=== PATIENT | female | born 1925 | race Caucasian/White ===

== ENCOUNTER 2016-05-27 09:01 | Outpatient (CLI) | payer OTHER ==
[2012-10-09 12:01] VITALS: BP 142/65; TEMP 97.3
[2016-03-30 11:07] VITALS: BMI 25.7
== END 2016-05-27 09:02 | disposition home or self-care (01) ==
LOC: NONPT 09:01
PROVIDERS: ATTEND General Practice
DX: R19.7 Diarrhea, unspecified (principal)

== ENCOUNTER 2016-06-01 10:28 | Outpatient (CLI) | payer OTHER ==
[2012-10-09 12:01] VITALS: BP 142/65; TEMP 97.3
[2016-03-30 11:07] VITALS: BMI 25.7
== END 2016-06-01 10:29 | disposition home or self-care (01) ==
LOC: NONPT 10:28
PROVIDERS: ATTEND General Practice
DX: A04.7 Enterocolitis due to Clostridium difficile (principal)
CPT/HCPCS: 87015; 87045; 87493; 87899

== ENCOUNTER 2016-06-08 16:36 | Outpatient (CLI) ==
[2012-10-09 12:01] VITALS: TEMP 97.3
== END 2016-06-08 16:37 ==
LOC: AMBL 16:36
PROVIDERS: ATTEND Internal Medicine
DX: S61.012A Laceration without foreign body of left thumb without damage to nail, initial encounter (principal); M25.512 Pain in left shoulder; R29.6 Repeated falls; F03.90 Unspecified dementia, unspecified severity, without behavioral disturbance, psychotic disturbance, mood disturbance, and anxiety; W19.XXXA Unspecified fall, initial encounter; Y92.129 Unspecified place in nursing home as the place of occurrence of the external cause

== ENCOUNTER 2016-06-12 08:02 | Outpatient (CLI) ==
[2012-10-09 12:01] VITALS: TEMP 97.3
[2016-06-12 13:42] VITALS: BMI 21.2
== END 2016-06-12 08:03 | disposition home or self-care (01) ==
LOC: AMBL 08:02
PROVIDERS: ATTEND Emergency Medicine
DX: R09.02 Hypoxemia (principal); R09.89 Other specified symptoms and signs involving the circulatory and respiratory systems; S69.92XA Unspecified injury of left wrist, hand and finger(s), initial encounter; J44.9 Chronic obstructive pulmonary disease, unspecified

== ENCOUNTER 2016-06-12 08:11 | Inpatient (IN) | payer OTHER ==
[2016-06-12 08:57] LABS: BASOPHILS % (AUTO) 0.1 % (0.0-3.0); HEMATOCRIT 30.8 % (37.0-47.0); HEMOGLOBIN 10.5 g/dl (12.0-16.0); LYMPHOCYTES # (AUTO) 0.8 K/uL (0.60-3.4); LYMPHOCYTES % (AUTO) 2.6 (10.0-50.0); MEAN CORPUSCULAR HEMOGLOBIN 27.3 pg (27.0-31.0); MEAN CORPUSCULAR HGB CONC 34.1 (31.8-35.4); MONOCYTES % (AUTO) 6.6 (0-10); NEUTROPHILS % (AUTO) 89.7; PLATELET COUNT 251 10^3/uL (140-440); RED BLOOD COUNT 3.85 10^6/ul (4.20-5.40); WHITE BLOOD COUNT 30.04 K/ul (4.6-10.2)
--- NOTE | 2016-06-12 09:10 | DI ---
EXAM: Left hand to the is HISTORY: Recent surgery, concern for osteomyelitis COMPARISON: 11/24/2014 TECHNIQUE: Two views left hand were performed FINDINGS/IMPRESSION: Evaluation is limited due to patient positioning. There is a displaced age ind eterminate fracture of the proximal phalanx first digit. Suggestion of callus formation in this bob on may suggest subacute etiology, poorly visualized. A splint overlies this region. Clinical correl ation is recommended. No cortical destruction identified to suggest osteomyelitis by radiograph. M RI can be performed if there is continued clinical concern for osteomyelitis. Suggestion of soft tis concepcion swelling of several digits. Moderate scattered osteoarthritis. Atherosclerosis. Report faxed at time of dictation.
--- NOTE | 2016-06-12 09:12 | DI ---
EXAM: Chest one view HISTORY: Short of air COMPARISON: 03/30/2016 TECHNIQUE: Single view of the chest was performed FINDINGS: Patchy basilar atelectasis and/or infiltrate There is no pleural effusion or pneumothora x. The heart is normal in size. The mediastinal contour is normal, noting atherosclerosis. There are no acute abnormalities of the bones. There are surgical clips left axillary region. IMPRESSION: Patchy bibasilar atelectasis and/or pneumonia Report faxed at time of dictation
[2016-06-12] MEDS ORDERED: AVELOX 400 MG in PREMIX 250 ML NS 1 BAG IV STA (09:23)
[2016-06-12] MEDS ORDERED: SODIUM CHLORIDE 200 ML IV STA (09:24)
--- NOTE | 2016-06-12 09:29 | ED.PDOC ---
General ED Provider: Dr. EBER MITTAL JR Chief Complaint: Respiratory Complaint Stated Complaint: SHORT OF AIR[End]this morning per skf 97.8 118 24 88 119/82 HAS BANDAGE TO LEFT ARM FROM RECENT OPEN FX TO THUMB[End] Time Seen by Physician: 09:00 Mode of Arrival: Ambulance Information Source: Patient, Retirement, EMT Exam Limitations: Clinical condition, Altered mental status [facility] Documentation Reviewed and Agree: No Review of Systems - Review Of Systems Constitutional: Reports: Malaise Respiratory: Reports: Short of air Cardiac: Reports: Other GI: Reports: Other Musculoskeletal: Reports: Joint pain Skin: Reports: No symptoms Neurological: Reports: Cognitive dysfunction Endocrine: Reports: No symptoms All Other Systems: Other Past Medical History - Past Medical History Endocrine: Reports: Hypothyroid Cardiovascular: Reports: Hypertension, Other ((aortic mitral valve on [facility] NOTES )-NORMAL ON echo 07/10/12) Respiratory: Reports: COPD Hematological: Reports: None Gastrointestinal: Reports: GERD Genitourinary: Reports: Kidney stones, CKD Neuro/Psych: Reports: TIA, CVA, Depression, Dementia Musculoskeletal: Reports: Arthritis 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 Last Menstrual Period: na Other Pertinent Past Medical History: falls, nonrheumatic aortic valve disorder , mitral valve disorder, - Surgical History General Surgical History: Reports: Appendectomy, Cholecystectomy, Orthopedic ( LEFT HIP-hip replacement), Other (LEFT SIDE MASECTOMY, CATARACT) - Family History Family History: Reports: Unknown - Social History Smoking Status: Former smoker Hx Substance Use: No Alcohol Screening: None Physical Exam - Physical Exam Appearance: Ill-appearing (unable to understand complaints states dooing all right but...unable to follow patient sentences) Ill-appearing: Moderate Pain Distress: Moderate Neck: Supple Respiratory: Airway patent, Rhonchi, Wheezes Cardiovascular: RRR, Tachycardia GI/: Soft, Nontender Musculoskeletal: Limited ROM, Limited strength Neurological: Alert, Alert to verbal Psychiatric: Depressed Interpretation - Radiology Interpretation Radiology Interpretation By: Radiologist Radiology Results: Positive Exam Interpreted: CXR (atel vs pneu), Other (hand no evidence osteo) - EKG Interpretation Time of EKG #1: 09:20 Rate: Tachy Rhythm: Sinus ST Segment: Other (LAFB nonspecificT wave changes deep s waves) Physician Notification - Case Discussed Physician Notified: [email or web address] Time of Notification: 11:43 (may admit if ok with family/no cardiac cath here) Time of Notification: 12:07 (disc witrh family prefer to keep here request consult dr mchugh, unwilling to have go to [facility] unless something specific to add) Critical Care Note - Critical Care Note Total Time (mins): 30 Course - Course Hematology/Chemistry: 06/12/16 08:45 06/12/16 08:45 Orders, Labs, Meds: Lab Review 06/12/16 06/12/16 06/12/16 08:21 08:45 09:20 WBC 30.04 H RBC 3.85 L Hgb 10.5 L Hct 30.8 L MCV 80.0 L MCH 27.3 MCHC 34.1 RDW Coeff of Yoseph 16.5 H Plt Count 251 Immature Gran % (Auto) 1.0 Neut % (Auto) 89.7 Lymph % (Auto) 2.6 L [place] % (Auto) 6.6 Eos % (Auto) 0.0 Baso % (Auto) 0.1 Immature Gran # (Auto) 0.3 Neut # 27.0 H Lymph # 0.8 [place] # 2.0 Eos # 0.0 Baso # 0.0 PT 11.5 H INR 1.12 APTT 24.1 D-Dimer 2.36 Puncture Site Rbrach O2 Saturation 75.0 L ABG pH 7.370 ABG pCO2 28.4 L ABG pO2 40.0 L* ABG HCO3 16.4 L ABG Total CO2 17 L ABG Base Excess -9 L Wilmer Test + FiO2 % 21.0 Sodium 144 Potassium 3.6 Chloride 113 H Carbon Dioxide 18 L Anion Gap 16.6 BUN 53 H Creatinine 2.34 H Estimated GFR (MDRD) 20.00 BUN/Creatinine Ratio 22.64 Glucose 110 Lactic Acid 10.6 Calcium 9.1 Total Bilirubin 0.45 AST 31 ALT 20 Alkaline Phosphatase 77 Total Creatine Kinase 667 CK-MB (CK-2) 8.8 H* CK-MB (CK-2) % 1.58751 Troponin I 1.1700 H* B-Natriuretic Peptide 1868 H Total Protein 7.0 Albumin 2.8 L Globulin 4.2 Albumin/Globulin Ratio 0.67 Procalcitonin 0.29 Cancelled Urine Color Urine Clarity Urine pH Ur Specific [place] Urine Protein Urine Glucose (UA) Urine Ketones Urine Blood Urine Nitrite Urine Bilirubin Urine Urobilinogen Ur Leukocyte Esterase Urine Microscopic WBC Ur Squamous Epith Cells 06/12/16 11:45 WBC RBC Hgb Hct MCV MCH MCHC RDW Coeff of Yoseph Plt Count Immature Gran % (Auto) Neut % (Auto) Lymph % (Auto) [place] % (Auto) Eos % (Auto) Baso % (Auto) Immature Gran # (Auto) Neut # Lymph # [place] # Eos # Baso # PT INR APTT D-Dimer Puncture Site O2 Saturation ABG pH ABG pCO2 ABG pO2 ABG HCO3 ABG Total CO2 ABG Base Excess [place] Test FiO2 % Sodium Potassium Chloride Carbon Dioxide Anion Gap BUN Creatinine Estimated GFR (MDRD) BUN/Creatinine Ratio Glucose Lactic Acid Calcium Total Bilirubin AST ALT Alkaline Phosphatase Total Creatine Kinase CK-MB (CK-2) CK-MB (CK-2) % Troponin I B-Natriuretic Peptide Total Protein Albumin Globulin Albumin/Globulin Ratio Procalcitonin Urine Color Yellow Urine Clarity Cloudy Urine pH 5.5 Ur Specific [place] 1.015 Urine Protein 2+ Urine Glucose (UA) Negative Urine Ketones Negative Urine Blood 2+ Urine Nitrite Positive Urine Bilirubin Negative Urine Urobilinogen 0.2 Ur Leukocyte Esterase 3+ Urine Microscopic WBC Ur Squamous Epith Cells Not present Orders Category Date Time Status ADMIT PATIENT INPATIENT .TO [facility] (MONITORED BED) ADMISSION 06/12/16 12: 10 Active ABG DRAW REQUEST Stat CARDIO 06/12/16 08:22 Completed EKG-(ED ONLY) Stat CARDIO 06/12/16 08:20 Completed EKG-(IP & OP ONLY) DAILY CARDIO 06/13/16 06:00 Ordered EKG-(IP & OP ONLY) DAILY CARDIO 06/14/16 06:00 Ordered EKG-(IP & OP ONLY) DAILY CARDIO 06/15/16 06:00 Ordered NEBULIZER TREATMENT Routine CARDIO 06/12/16 12:17 Active NEBULIZER TREATMENT Stat CARDIO 06/12/16 11:50 Completed OXYGEN Routine CARDIO 06/12/16 12:12 Active ACTIVITY .Complete BR CARE 06/12/16 12:10 Completed GIVE HS SNACK 2100 CARE 06/12/16 12:14 Active INTAKE & OUTPUT Q8HR CARE 06/12/16 12:10 Completed INTAKE & OUTPUT Q8HR CARE 06/12/16 12:25 Completed IV ACCESS ONCE CARE 06/12/16 09:20 Active TELEMETRY MONITORING TELE CARE 06/12/16 12:11 Active VITAL SIGNS Q4HR CARE 06/12/16 12:10 Active Wound Care [INCISION/WOUND CARE] Q12HR CARE 06/12/16 12:25 Active CLEAR LIQUID DIET DIETARY 06/12/16 Dinner Ordered HS SNACK DIETARY 06/12/16 Dinner Ordered ED APPLY O2 .ONCE EMERGENCY 06/12/16 08:20 Active ED PHYSICIAN IN PRIVATE PRACTICE APPLIED .ONCE EMERGENCY 06/12/16 09:20 Active ED IV/MEDIPORT/POWERPORT .ONCE EMERGENCY 06/12/16 08:20 Active ED VITAL SIGNS Q1HR EMERGENCY 06/12/16 09:20 Completed O2 [ED APPLY O2] .ONCE EMERGENCY 06/12/16 09:42 Active ABG Stat LAB 06/12/16 08:21 Completed B-TYPE NATRIURETIC PEPTIDE Stat LAB 06/12/16 08:45 Completed BLOOD CULTURE Stat LAB 06/12/16 08:45 Received CBC W/ AUTO DIFF DAILY@0600 LAB 06/13/16 06:00 Ordered CBC W/ AUTO DIFF DAILY@0600 LAB 06/14/16 06:00 Ordered CBC W/ AUTO DIFF DAILY@0600 LAB 06/15/16 06:00 Ordered CBC W/ AUTO DIFF DAILY@0600 LAB 06/16/16 06:00 Ordered CBC W/ AUTO DIFF DAILY@0600 LAB 06/17/16 06:00 Ordered CBC W/ AUTO DIFF DAILY@0600 LAB 06/18/16 06:00 Ordered CBC W/ AUTO DIFF DAILY@0600 LAB 06/19/16 06:00 Ordered CBC W/ AUTO DIFF DAILY@0600 LAB 06/20/16 06:00 Ordered CBC W/ AUTO DIFF DAILY@0600 LAB 06/21/16 06:00 Ordered CBC W/ AUTO DIFF DAILY@0600 LAB 06/22/16 06:00 Ordered CBC W/ AUTO DIFF DAILY@0600 LAB 06/23/16 06:00 Ordered CBC W/ AUTO DIFF DAILY@0600 LAB 06/24/16 06:00 Ordered CBC W/ AUTO DIFF DAILY@0600 LAB 06/25/16 06:00 Ordered CBC W/ AUTO DIFF DAILY@0600 LAB 06/26/16 06:00 Ordered CBC W/ AUTO DIFF DAILY@0600 LAB 06/27/16 06:00 Ordered CBC W/ AUTO DIFF DAILY@0600 LAB 06/28/16 06:00 Ordered CBC W/ AUTO DIFF DAILY@0600 LAB 06/29/16 06:00 Ordered CBC W/ AUTO DIFF DAILY@0600 LAB 06/30/16 06:00 Ordered CBC W/ AUTO DIFF DAILY@0600 LAB 07/01/16 06:00 Ordered CBC W/ AUTO DIFF DAILY@0600 LAB 07/02/16 06:00 Ordered CBC W/ AUTO DIFF Stat LAB 06/12/16 08:45 Completed COMPREHENSIVE METABOLIC PANEL DAILY@0600 LAB 06/13/16 06:00 Ordered COMPREHENSIVE METABOLIC PANEL DAILY@0600 LAB 06/14/16 06:00 Ordered COMPREHENSIVE METABOLIC PANEL DAILY@0600 LAB 06/15/16 06:00 Ordered COMPREHENSIVE METABOLIC PANEL DAILY@0600 LAB 06/16/16 06:00 Ordered COMPREHENSIVE METABOLIC PANEL DAILY@0600 LAB 06/17/16 06:00 Ordered COMPREHENSIVE METABOLIC PANEL DAILY@0600 LAB 06/18/16 06:00 Ordered COMPREHENSIVE METABOLIC PANEL DAILY@0600 LAB 06/19/16 06:00 Ordered COMPREHENSIVE METABOLIC PANEL DAILY@0600 LAB 06/20/16 06:00 Ordered COMPREHENSIVE METABOLIC PANEL DAILY@0600 LAB 06/21/16 06:00 Ordered COMPREHENSIVE METABOLIC PANEL DAILY@0600 LAB 06/22/16 06:00 Ordered COMPREHENSIVE METABOLIC PANEL DAILY@0600 LAB 06/23/16 06:00 Ordered COMPREHENSIVE METABOLIC PANEL DAILY@0600 LAB 06/24/16 06:00 Ordered COMPREHENSIVE METABOLIC PANEL DAILY@0600 LAB 06/25/16 06:00 Ordered COMPREHENSIVE METABOLIC PANEL DAILY@0600 LAB 06/26/16 06:00 Ordered COMPREHENSIVE METABOLIC PANEL DAILY@0600 LAB 06/27/16 06:00 Ordered COMPREHENSIVE METABOLIC PANEL DAILY@0600 LAB 06/28/16 06:00 Ordered COMPREHENSIVE METABOLIC PANEL DAILY@0600 LAB 06/29/16 06:00 Ordered COMPREHENSIVE METABOLIC PANEL DAILY@0600 LAB 06/30/16 06:00 Ordered COMPREHENSIVE METABOLIC PANEL DAILY@0600 LAB 07/01/16 06:00 Ordered COMPREHENSIVE METABOLIC PANEL DAILY@0600 LAB 07/02/16 06:00 Ordered COMPREHENSIVE METABOLIC PANEL Stat LAB 06/12/16 08:45 Completed CREATINE KINASE Q8H LAB 06/12/16 18:15 Ordered CREATINE KINASE Q8H LAB 06/13/16 02:15 Ordered CREATINE KINASE Stat LAB 06/12/16 08:45 Completed CULTURE WOUND [WOUND CULTURE] Stat LAB 06/12/16 11:45 Received D-DIMER Stat LAB 06/12/16 08:45 Completed LACTIC ACID Stat LAB 06/12/16 08:45 Completed PARTIAL THROMBOPLASTIN TIME Stat LAB 06/12/16 09:20 Completed PROCALCITONIN Stat LAB 06/12/16 08:45 Completed PT WITH INR Stat LAB 06/12/16 09:20 Completed TROPONIN I Q8H LAB 06/12/16 18:15 Ordered TROPONIN I Q8H LAB 06/13/16 02:15 Ordered TROPONIN I Stat LAB 06/12/16 08:45 Completed URINALYSIS C & S IF INDICATED Stat LAB 06/12/16 11:45 Completed URINE CULTURE Stat LAB 06/12/16 11:45 Received 0.9 % Sodium Chloride [Saline Flush] MEDS 06/12/16 08:20 Active 1 syr IVF PRN PRN Acetaminophen [Tylenol] MEDS 06/12/16 09:57 Discontinued 650 mg PO ONCE STA Albuterol Sulfate 0.083% Neb [Albuterol 0.083% Neb] MEDS 06/12/16 11:50 Discontinued 1 vial NEB ONCE STA Albuterol Sulfate 0.083% Neb [Albuterol 0.083% Neb] MEDS 06/12/16 14:00 Ordered 1 vial NEB RTQID Cholecalciferol (Vitamin D3) [Vitamin D3] MEDS 06/19/16 09:00 Ordered 50,000 units PO WEEKLY Cholestyramine [Cholestyramine Resin] MEDS 06/13/16 09:00 Ordered 1 packet PO DAILY Clopidogrel Bisulfate [Plavix] MEDS 06/13/16 09:00 Ordered 75 mg PO DAILY Cranberry [Cranberry] MEDS 06/12/16 21:00 Ordered 500 mg PO BID Fluticasone Propionate [Flonase] MEDS 06/12/16 21:00 Ordered 2 spray SONNY BID Fluticasone/Salmeterol 250/50 [Advair 250-50 Diskus] MEDS 06/12/16 21:00 Ordered 1 puff IH BID Guaifenesin/Dextromethorphan [Robitussin Dm Syrup] MEDS 06/12/16 12:17 Ordered 10 ml PO QID PRN Ipratropium/Albuterol Neb [Duoneb] MEDS 06/12/16 12:17 Ordered 1 vial NEB RTQ8H PRN Levothyroxine Sodium [Tirosint] MEDS 06/13/16 09:00 Ordered 75 mcg PO DAILY Losartan Potassium [Cozaar] MEDS 06/13/16 09:00 Ordered 25 mg PO DAILY Magnesium Hydroxide [Milk of Magnesia] MEDS 06/12/16 12:17 Ordered 30 ml PO BID PRN Metoprolol Tartrate [Lopressor] MEDS 06/12/16 21:00 Ordered 12.5 mg PO BID Moxifloxacin in NaCl [Avelox] 400 mg MEDS 06/13/16 09:00 Ordered Premix 250 ml 0.9% NaCl [Premix 250 ml Ns] 1 bag IV DAILY Moxifloxacin in NaCl [Avelox] 400 mg MEDS 06/12/16 09:23 Discontinued Premix 250 ml 0.9% NaCl [Premix 250 ml Ns] 1 bag IV ONCE Pregabalin [Lyrica] MEDS 06/12/16 13:00 Ordered 75 mg PO Q8HR Sodium Chloride 0.9% [Sodium Chloride] 1,000 ml MEDS 06/12/16 12:30 Discontinued IV 75 mls/hr Sodium Chloride 0.9% [Sodium Chloride] 200 ml MEDS 06/12/16 09:24 Discontinued IV BOLUS RESUSCITATION STATUS Routine OTHERS 06/12/16 12:10 Ordered CHEST, 1V AP ONLY Stat RADS 06/12/16 08:[address] CHEST W/O CONTRAST Stat RADS 06/12/16 09:17 Completed HAND, LEFT 2 VIEWS Stat RADS 06/12/16 08:42 Completed Medications Generic Name Dose Route Start Last Admin Trade Name Freq PRN Reason Stop Dose Admin Albuterol Sulfate 1 vial 06/12/16 14:00 06/12/16 15:00 Albuterol 0.083% Neb NEB Not Given RTQID TIANA Albuterol/Ipratropium 1 vial 06/12/16 12:17 Duoneb NEB RTQ8H PRN Wheezing Clopidogrel Bisulfate 75 mg 06/13/16 09:00 Plavix PO DAILY TIANA Clopidogrel Bisulfate 75 mg 06/12/16 14:27 06/12/16 14:54 Plavix PO 06/12/16 14:28 75 mg ONCE STA Administration Fluticasone Propionate 2 spray 06/12/16 21:00 Flonase SONNY BID TIANA Guaifenesin/Dextromethorphan 10 ml 06/12/16 12:17 Robitussin Dm Syrup PO QID PRN Cough Moxifloxacin HCl 400 mg/ 250 mls @ 125 mls/hr 06/13/16 09:00 Sodium Chloride IV DAILY TIANA Ertapenem 0.5 gm/ Sodium 50 mls @ 75 mls/hr 06/12/16 15:00 06/12/16 15:42 Chloride IV 75 mls/hr DAILY TIANA Administration Multivitamins/Minerals 10 ml/ 1,010 mls @ 83 mls/hr 06/12/16 15:30 06/12/16 15:43 Potassium Chloride/Dextrose/ IV Not Given Sod Cl .[id number] [facility] Losartan Potassium 25 mg 06/13/16 09:00 Cozaar PO DAILY TIANA Losartan Potassium 25 mg 06/12/16 14:28 06/12/16 14:54 Cozaar PO 06/12/16 14:29 25 mg ONCE STA Administration Magnesium Hydroxide 30 ml 06/12/16 12:17 Milk Of Magnesia PO BID PRN Constipation Metoprolol Tartrate 12.5 mg 06/12/16 21:00 Lopressor PO BID [facility] Non-Formulary Medication 75 mcg 06/13/16 09:00 Levothyroxine Sodium [Tirosint] PO DAILY TIANA Non-Formulary Medication 500 mg 06/12/16 21:00 Cranberry [Cranberry] PO BID TIANA Non-Formulary Medication 1 packet 06/13/16 09:00 Cholestyramine [Cholestyramine Resin] PO DAILY [facility] Non-Formulary Medication 50,000 units 06/19/16 09:00 Cholecalciferol (Vitamin D3) [Vitamin D3] PO WEEKLY TIANA Pantoprazole Sodium 40 mg 06/12/16 14:29 06/12/16 14:54 Protonix PO 06/12/16 14:30 40 mg ONCE STA Administration Pregabalin 75 mg 06/12/16 13:00 06/12/16 13:51 Lyrica PO 75 mg Q8HR TIANA Administration Fluticasone/Salmeterol 1 puff 06/12/16 21:00 Advair 250-50 Diskus IH BID TIANA Sodium Chloride 1 syr 06/12/16 08:20 06/12/16 10:33 Saline Flush IVF 1 syr PRN PRN Administration To flush IV Discontinued Medications Generic Name Dose Route Start Last Admin Trade Name Freq PRN Reason Stop Dose Admin Acetaminophen 650 mg 06/12/16 09:57 06/12/16 10:32 Tylenol PO 06/12/16 09:58 650 mg ONCE STA Administration Albuterol Sulfate 1 vial 06/12/16 11:50 06/12/16 12:05 Albuterol 0.083% Neb NEB 06/12/16 11:51 1 vial ONCE STA Administration Moxifloxacin HCl 400 mg/ 250 mls @ 125 mls/hr 06/12/16 09:23 06/12/16 10:30 Sodium Chloride IV 06/12/16 11:22 125 mls/hr ONCE STA Administration Sodium Chloride 200 mls @ 1,000 mls/hr 06/12/16 09:24 06/12/16 10:23 Sodium Chloride IV 06/12/16 09:35 125 mls/hr BOLUS STA Administration Sodium Chloride 1,000 mls @ 75 mls/hr 06/12/16 12:30 06/12/16 13:50 Sodium Chloride IV Not Given .[id number] TIANA Vital Signs: Temp Pulse Resp BP Pulse Ox 06/12/16 08:20 97.8 F 118 H 24 119/82 88 L Departure - Departure Time of Disposition: 12:00 Disposition: ADMITTED INPATIENT Discharge Problem: Pneumonia Qualifiers: Pneumonia type: due to unspecified organism Laterality: bilateral Lung location : lower lobe of lung Qualifier Code: (J18.9) Pneumonia, unspecified organism Condition: Fair Pt referred to PMD for follow-up: Yes Allergies/Adverse Reactions: Allergies aspirin Adverse Reaction (Verified 06/12/16 09:07) cephalexin monohydrate [From Keflex] Adverse Reaction (Verified 06/12/16 09:07) hydrochlorothiazide Adverse Reaction (Verified 06/12/16 09:07) hydrocodone [Hydrocodone] Adverse Reaction (Verified 06/12/16 09:07) linezolid [From Zyvox] Adverse Reaction (Verified 06/12/16 09:07) lisinopril [From Prinivil] Adverse Reaction (Verified 06/12/16 09:07) nisoldipine [From Sular] Adverse Reaction (Verified 06/12/16 09:07) Penicillins Adverse Reaction (Verified 06/12/16 09:07) sulfamethazine [Sulfamethazine] Adverse Reaction (Verified 06/12/16 09:07) theophylline Adverse Reaction (Verified 06/12/16 09:07) zafirlukast [From Accolate] Adverse Reaction (Verified 06/12/16 09:07) Home Medications: Ambulatory Orders Cholestyramine [Cholestyramine Resin] 1 packet PO DAILY 10/04/12 Clopidogrel Bisulfate [Plavix] 75 mg PO DAILY 10/04/12 Donepezil HCl 10 mg PO BEDTIME 10/04/12 Fluticasone/Salmeterol 250/50 [Advair 250-50 Diskus] 1 puff IH BID 10/04/12 Levothyroxine Sodium [Tirosint] 75 mcg PO DAILY 10/04/12 Multivitamin [Multi-Vitamin Daily] 1 cap PO DAILY 10/04/12 Metoprolol Tartrate [Lopressor] 12.5 mg PO BID #30 tablet 12/17/13 Acetaminophen [Tylenol] 1 - 2 tab PO Q6H PRN 07/29/14 Fluticasone Propionate [Flonase] 2 spray SONNY BID #1 spray.susp 08/05/14 Losartan Potassium [Cozaar] 25 mg PO DAILY #30 tablet 08/05/14 Pantoprazole Sodium 40 mg PO DAILY 12/08/14 Amlodipine Besylate [Norvasc] 2.5 mg PO DAILY 01/01/15 Cranberry 500 mg PO BID #30 capsule 01/12/15 Cholecalciferol (Vitamin D3) [Vitamin D3] 50,000 units PO WEEKLY 01/27/15 Hydroxyzine HCl 25 mg PO QID 03/05/16 Ondansetron HCl [Zofran] 4 mg PO Q6H PRN 03/05/16 Ipratropium/Albuterol Neb [Duoneb] 1 vial NEB RTQ8H #1 vial.neb 03/11/16 Guaifenesin/Dextromethorphan [Guaifenesin Dm Syrup] 10 ml PO QID PRN #120 cup Loperamide HCl [Loperamide] 2 mg PO Q4HR PRN 06/12/16 Magnesium Hydroxide [Milk of Magnesia] 30 ml PO BID PRN 06/12/16
[2016-06-12 09:35] LABS: ABG BASE EXCESS -9 (-2.0-2.0); ABG HCO3 16.4 (22.0-26.0); ABG PCO2 28.4 mmHg (35-45); ABG TCO2 17 (22.0-28.0)
[2016-06-12 09:51] LABS: PARTIAL THROMBOPLASTIN TIME 24.1 SEC (23.9-40.0); PROTHROMBIN TIME 11.5 SEC (9.3-11.0)
[2016-06-12 09:56] LABS: ALBUMIN 2.8 g/dL (3.4-5.0); ALBUMIN/GLOBULIN RATIO 0.67; ANION GAP 16.6; BILIRUBIN,TOTAL 0.45 mg/dL (0.00-1.20); BUN/CREATININE RATIO 22.64; CALCIUM 9.1 mg/dL (8.2-10.2); CREATININE 2.34 mg/dL (0.60-1.30); POTASSIUM 3.6 mmol/L (3.5-5.10)
[2016-06-12] MEDS ORDERED: TYLENOL PO STA (09:57)
[2016-06-12 09:59] LABS: TROPONIN I 1.17 ng/ml (0.0000-0.4000)
[2016-06-12 10:00] LABS: CREATINE KINASE MB 8.8 ng/ml (0.0-3.6)
--- NOTE | 2016-06-12 10:16 | CT ---
EXAM: CT scan of the chest without contrast HISTORY: Shortness of breath, pneumonia versus atelectasis. TECHNIQUE: Imaging of the chest was performed without contrast. 5 mm thin axial images and coronal and sagittal reconstructions were provided for interpretation. Comparison 06/12/2016 one-view chest. FINDINGS: Opacities are seen within the dependent lung bases bilaterally. The heart is normal size . Lungs are otherwise clear. There has been previous cholecystectomy. No lytic or blastic lesions are seen within the osseous structures. There is atherosclerotic calcification of the thoracic aor ta and coronary arteries. IMPRESSION: Probable atelectasis and less likely pneumonia seen within the dependent lung bases marta aterally.
[2016-06-12] MEDS ORDERED: ALBUTEROL 0.083% NEB NEB STA (11:50)
[2016-06-12 11:57] LABS: BILIRUBIN,URINE Negative (NEGATIVE); KETONES,URINE Negative (NEGATIVE); LEUKOCYTE ESTERASE ,URINE 3+ (NEGATIVE); NITRITE,URINE Positive (NEGATIVE); PH,URINE 5.5 (5-9); PROTEIN,URINE 2+ (NEGATIVE); URINE, BLOOD 2+ (NEGATIVE)
[2016-06-12 11:58] LABS: ADD URINE MICROSCOPIC YES
[2016-06-12] MEDS ORDERED: TYLENOL PO PRN ×2 (12:10→12:17)
[2016-06-12] MEDS ORDERED: MILK OF MAGNESIA PO PRN (12:17)
[2016-06-12] MEDS ORDERED: NON-FORMULARY MEDICATION (Loperamide Hcl [Loperamide] 2 MG) PO PRN ×22 (12:17)
[2016-06-12] MEDS ORDERED: ROBITUSSIN DM SYRUP PO PRN (12:17)
[2016-06-12] MEDS ORDERED: DUONEB NEB PRN (12:17)
[2016-06-12] MEDS ORDERED: SODIUM CHLORIDE 1,000 ML IV SCH (12:30)
[2016-06-12 13:42] VITALS: BMI 21.2
[2016-06-12] MEDS: LYRICA PO SCH ×2 (13:51→20:56)
[2016-06-12] MEDS ORDERED: PLAVIX PO STA (14:27)
[2016-06-12] MEDS ORDERED: COZAAR PO STA (14:28)
[2016-06-12] MEDS ORDERED: PROTONIX PO STA (14:29)
[2016-06-12] MEDS: ALBUTEROL 0.083% NEB NEB SCH ×2 (15:00→19:17)
[2016-06-12] MEDS ORDERED: INVANZ 0.5 GM in SODIUM CHLORIDE 50 ML IV SCH (15:00)
[2016-06-12] MEDS ORDERED: INVANZ ONE ×2 (15:17→15:20)
[2016-06-12] MEDS ORDERED: INFUVITE ADULT IV ONE (15:35)
[2016-06-12] MEDS: INFUVITE ADULT 10 ML in D5%-1/4NS-KCL 20 MEQ/L IV SOL 1,000 ML IV SCH (15:43)
[2016-06-12 19:48] LABS: TROPONIN I 1.014 ng/ml (0.0000-0.4000)
[2016-06-12 19:49] LABS: CREATINE KINASE MB 6.9 ng/ml (0.0-3.6)
[2016-06-12] MEDS: ADVAIR 250-50 DISKUS IH SCH (20:55)
[2016-06-12] MEDS: FLONASE NAS SCH (20:56)
[2016-06-12] MEDS: LOPRESSOR PO SCH (20:56)
[2016-06-12] MEDS ORDERED: NON-FORMULARY MEDICATION (Cranberry [Cranberry] 500 MG) PO SCH (21:00)
[2016-06-13 02:28] LABS: BASOPHILS # (AUTO) 0.1 K/uL (0-0.2); BASOPHILS % (AUTO) 0.2 % (0.0-3.0); HEMATOCRIT 27.3 % (37.0-47.0); HEMOGLOBIN 9.2 g/dl (12.0-16.0); IMMATURE GRANULOCYTE % (AUTO) 1.1 % (0.0-5.0); LYMPHOCYTES # (AUTO) 0.9 K/uL (0.60-3.4); LYMPHOCYTES % (AUTO) 3.2 (10.0-50.0); MEAN CORPUSCULAR HGB CONC 33.7 (31.8-35.4); MEAN CORPUSCULAR VOLUME 80.1 fl (81.0-99.0); MONOCYTES # (AUTO) 2.1 K/uL (0.4-2.0); MONOCYTES % (AUTO) 7.2 (0-10); NEUTROPHILS # (AUTO) 25.8 K/ul (2.0-6.9); NEUTROPHILS % (AUTO) 88.3; PLATELET COUNT 221 10^3/uL (140-440); RED BLOOD COUNT 3.41 10^6/ul (4.20-5.40); WHITE BLOOD COUNT 29.21 K/ul (4.6-10.2)
[2016-06-13 02:48] LABS: ALBUMIN 2.2 g/dL (3.4-5.0); ALBUMIN/GLOBULIN RATIO 0.63; ANION GAP 13.9; BILIRUBIN,TOTAL 0.45 mg/dL (0.00-1.20); BUN/CREATININE RATIO 26.88; CALCIUM 8.3 mg/dL (8.2-10.2); CREATININE 2.12 mg/dL (0.60-1.30); POTASSIUM 3.9 mmol/L (3.5-5.10); TOTAL PROTEIN 5.7 g/dL (5.8-8.1)
[2016-06-13 03:20] LABS: CREATINE KINASE MB 6.8 ng/ml (0.0-3.6); TROPONIN I 0.783 ng/ml (0.0000-0.4000)
[2016-06-13] MEDS: LYRICA PO SCH ×3 (05:12→21:02)
[2016-06-13] MEDS: ALBUTEROL 0.083% NEB NEB SCH ×4 (05:13→19:04)
[2016-06-13] MEDS ORDERED: INFUVITE ADULT IV ONE ×2 (05:23→20:54)
[2016-06-13] MEDS: INFUVITE ADULT 10 ML in D5%-1/4NS-KCL 20 MEQ/L IV SOL 1,000 ML IV SCH ×2 (05:30→21:02)
[2016-06-13] MEDS: ADVAIR 250-50 DISKUS IH SCH ×2 (08:45→21:03)
[2016-06-13] MEDS: AVELOX 400 MG in PREMIX 250 ML NS 1 BAG IV SCH (08:45)
[2016-06-13] MEDS: PLAVIX PO SCH (08:46)
[2016-06-13] MEDS: DECADRON 4 MG/ML SDV IM SCH (08:46)
[2016-06-13] MEDS: FLONASE NAS SCH ×2 (08:46→21:03)
[2016-06-13] MEDS: COZAAR PO SCH (08:46)
[2016-06-13] MEDS: SYNTHROID PO SCH (08:46)
[2016-06-13] MEDS: LOPRESSOR PO SCH ×2 (08:47→21:00)
[2016-06-13] MEDS ORDERED: CHOLESTYRAMINE PO SCH (09:00)
[2016-06-13] MEDS ORDERED: MULTIVITAMIN PO SCH (09:00)
[2016-06-13] MEDS ORDERED: NON-FORMULARY MEDICATION (Levothyroxine Sodium [Tirosint] 75 MCG) PO SCH ×22 (09:00)
[2016-06-13] MEDS ORDERED: NORVASC PO SCH (09:00)
[2016-06-13] MEDS ORDERED: PROTONIX PO SCH (09:00)
[2016-06-13] MEDS ORDERED: NON-FORMULARY MEDICATION (Cranberry [Cranberry] 500 MG) PO SCH (09:00)
[2016-06-13] MEDS: INVANZ IV SCH (11:23)
[2016-06-13] MEDS: SODIUM CHLORIDE IV SCH (11:23)
[2016-06-13] MEDS ORDERED: MORPHINE 2 MG/ML SYRINGE IVP PRN (12:07)
[2016-06-13] MEDS: PREVALITE PO SCH (12:14)
--- NOTE | 2016-06-13 12:55 | PCM.CONS ---
CONSULTING PROVIDER: Dr. ARON GODINEZ ATTENDING PROVIDER: Dr. LATRELL [facility] DATE OF SERVICE: 06/13/16 SUBJECTIVE: This 89 year old WHITE/ F was hospitalized 06/12/16. The patient is see in consultation because of pneumonia, UTI and respiratory failure. The patient has multiple medical problems. She is obtunded, harsh breathing and not responding to verbal stimulus. I am unable to get history from the patient. List of medications reviewed. The patient seems to have hypertension, chronic lung disease, CHF, and hypothyroidism. The patient was brought to the ER on 06/12 with pneumonia and UTI. She has been given nebs treatment, steroids and antibiotics. REVIEW OF SYSTEMS: (Unable to obtain from the patient) CONSTITUTIONAL: No night sweats. No fatigue, malaise, lethargy. No fever or chills. HEENT: Eyes: No visual changes. No eye pain. No eye discharge. ENT: No runny nose. No epistaxis. No sinus pain. No odynophagia. No congestion. RESPIRATORY: No cough, no congestion. No hemoptysis. CARDIOVASCULAR: No angina symptoms. No CHF symptoms. No atypical chest pain for CAD. No palpitations. No shortness of breath. GASTROINTESTINAL: No abdominal pain. No nausea or vomiting. No diarrhea or constipation. No hematemesis. No hematochezia. GENITOURINARY: No urgency. No frequency. No dysuria. No hematuria. No obstructive symptoms. No discharge. No pain. No significant abnormal bleeding. MUSCULOSKELETAL: No musculoskeletal pain; no joint swelling. NEUROLOGICAL: . No headache. No neck pain. No syncope. No seizures. No dizziness. PSYCHIATRIC: Not anxious. No depression. No suicidal thoughts. No homicidal thoughts. SKIN: No rash. No lesions. No wounds. ENDOCRINE: No unexplained weight loss. No weight gain. HEMATOLOGIC/LYMPHATIC: No anemia. No purpura. No petechiae. No prolonged or excessive bleeding. No palpable lymph nodes. PHYSICAL EXAMINATION: GENERAL: The patient is obtunded, doesn't respond to verbal stimuli, lying in bed. The patient doesn't seem to be in distress. VITAL SIGNS: Temperature 98.9 F, Pulse 102, Respiratory Rate 25, BP 112/66, Pulse Ox 91% HEENT: Head normocephalic, atraumatic. Eyes: Extraocular muscles are intact. Pupils are equal, round and reactive to light and accommodation. Ears: No lesions. Nose appeared normal. Throat: No exudate or erythema. NECK: Supple. No JVD, no carotid bruit. No lymphadenopathy or thyromegaly. LUNGS: Decreased breath sounds with bilateral wheeze. Percussion note normal. Chest symmetrical. HEART: S1, S2, no S3. No murmurs. No cyanosis or clubbing. No ascites. Pulses: Dorsalis pedis and posterior tibial pulses +1 to +2 both sides. ABDOMEN: Soft. Non-tender. Bowel sounds active. No CVA tenderness. No mass felt. EXTREMITIES: No pedal edema. She seems to be moving all extremities. Left hand is bandaged. NEUROLOGIC: No focal deficit. Cranial nerves II through XII are grossly intact. No headache, no double vision or headache. SKIN: Not dry. Intact. Turgor-normal. LYMPHATIC: No palpable lymph nodes/no lymphedema. MUSCULOSKELETAL: Normal joints with no swelling. Muscle tone is normal. LAB REVIEW: 06/13/16 02:15 06/13/16 02:15 06/13/16 02:15: WBC 29.21 H, RBC 3.41 L, Hgb 9.2 L, Hct 27.3 L, MCV 80.1 L, MCH 27.0, MCHC 33.7, RDW Coeff of Yospeh 16.5 H, Plt Count 221, Immature Gran % (Auto) 1.1, Neut % (Auto) 88.3, Lymph % (Auto) 3.2 L, [place] % (Auto) 7.2, Eos % (Auto) 0.0, Baso % (Auto) 0.2, Immature Gran # (Auto) 0.3, Neut # 25.8 H, Lymph # 0.9, [place] # 2.1 H, Eos # 0.0, Baso # 0.1, Sodium 144, Potassium 3.9, Chloride 116 H, Carbon Dioxide 18 L, Anion Gap 13.9, BUN 57 H, Creatinine 2.12 H, Estimated GFR (MDRD) 22.00, BUN/Creatinine Ratio 26.88, Glucose 125 H, Calcium 8.3, Total Bilirubin 0.45, AST 28, ALT 18, Alkaline Phosphatase 65, Total Creatine Kinase 635, CK-MB (CK-2) 6.8 H*, CK-MB (CK-2) % 1.20198, Troponin I 0.7830 H*, B- Natriuretic Peptide 1450 H, Total Protein 5.7 L, Albumin 2.2 L, Globulin 3.5, Albumin/Globulin Ratio 0.63 06/12/16 18:50: Total Creatine Kinase 596, CK-MB (CK-2) 6.9 H*, CK-MB (CK-2) % 1.76759, Troponin I 1.0140 H* ASSESSMENT: 1. PNEUMONIA, POSSIBILITY OF LEFT VENTRICULAR FAILURE 2. UTI 3. DEMENTIA 4. HYPOTHYROIDISM 5. HYPERTENSION RECOMMENDATIONS/PLAN: 1. I agree with the present management. 2. I will add 1 cc Decadron today and each a.m. 3. Continue antibiotics and nebs treatment. 4. Will do echo to evaluate LV function if not done in past 6 months. 5. Procalcitonin level. 6. The family doesn't want anything done. Plan and coordination of the patient's care discussed in the presence of Senior Sas Developer and Nurse. CONDITION: Stable SCRIBED BY: ANASTASIA KEITH Linux Kernel Engineer scribed while in presence of service performed by Dr. ARON GODINEZ on 06/13/16 ([id number])
[2016-06-14 05:09] LABS: BASOPHILS % (AUTO) 0.1 % (0.0-3.0); HEMATOCRIT 29.1 % (37.0-47.0); HEMOGLOBIN 9.7 g/dl (12.0-16.0); IMMATURE GRANULOCYTE % (AUTO) 1.2 % (0.0-5.0); LYMPHOCYTES % (AUTO) 3.8 (10.0-50.0); MEAN CORPUSCULAR HEMOGLOBIN 26.9 pg (27.0-31.0); MEAN CORPUSCULAR HGB CONC 33.3 (31.8-35.4); MEAN CORPUSCULAR VOLUME 80.6 fl (81.0-99.0); MONOCYTES # (AUTO) 0.9 K/uL (0.4-2.0); MONOCYTES % (AUTO) 3.3 (0-10); NEUTROPHILS # (AUTO) 23.4 K/ul (2.0-6.9); NEUTROPHILS % (AUTO) 91.6; PLATELET COUNT 240 10^3/uL (140-440); RED BLOOD COUNT 3.61 10^6/ul (4.20-5.40); WHITE BLOOD COUNT 25.56 K/ul (4.6-10.2)
[2016-06-14] MEDS: ALBUTEROL 0.083% NEB NEB SCH ×4 (05:10→22:25)
[2016-06-14 05:29] LABS: ALBUMIN 2.3 g/dL (3.4-5.0); ALBUMIN/GLOBULIN RATIO 0.58; ANION GAP 13.3; BILIRUBIN,TOTAL 0.23 mg/dL (0.00-1.20); BUN/CREATININE RATIO 31.13; CALCIUM 8.7 mg/dL (8.2-10.2); CREATININE 1.67 mg/dL (0.60-1.30); POTASSIUM 4.3 mmol/L (3.5-5.10); TOTAL PROTEIN 6.3 g/dL (5.8-8.1)
[2016-06-14] MEDS: SYNTHROID PO SCH (05:51)
[2016-06-14] MEDS: LYRICA PO SCH ×3 (06:15→21:04)
[2016-06-14] MEDS: SODIUM CHLORIDE IV SCH (09:59)
[2016-06-14] MEDS: INVANZ IV SCH (09:59)
[2016-06-14] MEDS: LOPRESSOR PO SCH ×2 (10:06→21:04)
[2016-06-14] MEDS: FLONASE NAS SCH ×2 (10:07→21:03)
[2016-06-14] MEDS: DECADRON 4 MG/ML SDV IM SCH (10:07)
[2016-06-14] MEDS: ADVAIR 250-50 DISKUS IH SCH ×2 (10:07→21:04)
[2016-06-14] MEDS: COZAAR PO SCH (10:07)
[2016-06-14] MEDS: PLAVIX PO SCH (10:07)
[2016-06-14] MEDS: AVELOX 400 MG in PREMIX 250 ML NS 1 BAG IV SCH (11:18)
--- NOTE | 2016-06-14 11:20 | PCM.CONS ---
CONSULTING PROVIDER: Dr. ARON GODINEZ ATTENDING PROVIDER: Dr. LATRELL [facility] DATE OF SERVICE: 06/14/16 SUBJECTIVE: This 89 year old WHITE/ F was hospitalized 06/12/16. The patient is hospitalized with acute bronchitis and pneumonia. The patient is seen in consultation with respiratory distress, cough and congestion which was from pneumonia and bronchitis. The patient's condition has improved remarkably; she is feeling a lot better, more alert. Breathing is pretty smooth with no wheezing. The other problem that was not addressed was the patient's abnormal EKG with possibility of anteroseptal wall ischemia. The echo normal LV contractility, CK-MBs borderline 6.8; the same type of findings were present at [facility] when the patient was discharged. Continue to monitor the patient's EKGs and cardiovascular status. REVIEW OF SYSTEMS: CONSTITUTIONAL: No night sweats. No fatigue, malaise, lethargy. No fever or chills. HEENT: Eyes: No visual changes. No eye pain. No eye discharge. ENT: No runny nose. No epistaxis. No sinus pain. No odynophagia. No congestion. RESPIRATORY: No cough, no congestion. No hemoptysis. CARDIOVASCULAR: No angina symptoms. No CHF symptoms. No atypical chest pain for CAD. No palpitations. No shortness of breath. GASTROINTESTINAL: No abdominal pain. No nausea or vomiting. No diarrhea or constipation. No hematemesis. No hematochezia. GENITOURINARY: No urgency. No frequency. No dysuria. No hematuria. No obstructive symptoms. No discharge. No pain. No significant abnormal bleeding. MUSCULOSKELETAL: No musculoskeletal pain; no joint swelling. NEUROLOGICAL: The patient is not oriented but more awake. No headache. No neck pain. No syncope. No seizures. No dizziness. PSYCHIATRIC: Not anxious. No depression. No suicidal thoughts. No homicidal thoughts. SKIN: No rash. No lesions. No wounds. ENDOCRINE: No unexplained weight loss. No weight gain. HEMATOLOGIC/LYMPHATIC: No anemia. No purpura. No petechiae. No prolonged or excessive bleeding. No palpable lymph nodes. PHYSICAL EXAMINATION: GENERAL: The patient is sleeping but awakens easily, not oriented (but was more awake yesterday afternoon) lying in bed in no distress. VITAL SIGNS: Temperature 97.0 F, Pulse 87, Respiratory Rate 21, BP 100/60, Pulse Ox 99% HEENT: Head normocephalic, atraumatic. Eyes: Extraocular muscles are intact. Pupils are equal, round and reactive to light and accommodation. Ears: No lesions. Nose appeared normal. Throat: No exudate or erythema. NECK: Supple. No JVD, no carotid bruit. No lymphadenopathy or thyromegaly. LUNGS: No wheeze with audible breath sounds. Better air entry. Percussion note normal. Chest symmetrical. HEART: S1, S2, no S3. No murmurs. No cyanosis or clubbing. No ascites. Pulses: Dorsalis pedis and posterior tibial pulses +1 to +2 both sides. ABDOMEN: Soft. Non-tender. Bowel sounds active. No CVA tenderness. No mass felt. EXTREMITIES: No edema. Full range of motion of all extremities, equal. NEUROLOGIC: No focal deficit. Cranial nerves II through XII are grossly intact. No headache, no double vision or headache. SKIN: Not dry. Intact. Turgor-normal. LYMPHATIC: No palpable lymph nodes/no lymphedema. MUSCULOSKELETAL: Normal joints with no swelling. Muscle tone is normal. LAB REVIEW: 06/14/16 05:06 06/14/16 05:06 06/14/16 05:06: WBC 25.56 H, RBC 3.61 L, Hgb 9.7 L, Hct 29.1 L, MCV 80.6 L, MCH 26.9 L, MCHC 33.3, RDW Coeff of Yoseph 16.7 H, Plt Count 240, Immature Gran % (Auto ) 1.2, Neut % (Auto) 91.6, Lymph % (Auto) 3.8 L, [place]orne % (Auto) 3.3, Eos % (Auto ) 0.0, Baso % (Auto) 0.1, Immature Gran # (Auto) 0.3, Neut # 23.4 H, Lymph # 1.0 , [place]orne # 0.9, Eos # 0.0, Baso # 0.0, Sodium 142, Potassium 4.3, Chloride 116 H, Carbon Dioxide 17 L, Anion Gap 13.3, BUN 52 H, Creatinine 1.67 H, Estimated GFR (MDRD) 29.00, BUN/Creatinine Ratio 31.13, Glucose 190 H, Calcium 8.7, Total Bilirubin 0.23, AST 30, ALT 26, Alkaline Phosphatase 72, B-Natriuretic Peptide 1286 H, Total Protein 6.3, Albumin 2.3 L, Globulin 4.0, Albumin/Globulin Ratio 0.58 ASSESSMENT: 1. Bronchitis and pneumonia resolving 2. No CHF clinically Echocardiogram done yesterday showed normal LV contractility with normal valves. (See above) RECOMMENDATIONS/PLAN: I agree with the present management. Plan and coordination of the patient's care discussed in the presence of Administrative Library Assistant and Nurse. Thanks for the referral. CONDITION: Stable SCRIBED BY: ANASTASIA KEITH Acoustical Engineer scribed while in presence of service performed by Dr. ARON GODINEZ on 06/14/16 ([id number])
--- NOTE | 2016-06-14 13:52 | ECHO2D ---
Date of Exam: 06/13/16 Ordering Physician: LATRELL HOWELL Reason for Echo: ELEVATED CARDIAC MARKERS AND ENZYMES, HTN, CVA, COPD, AORTIC AND MITRAL VALVE DISORDERS M-Mode Normal Adult Results LV Dimensions Normal Adult Results AoV Opening excursions >1.6 >1.6 LVEDD-base- 3.5-5.8 5.1 Ao root dimensions 2.0-3.7 3.0 LVESD-base- 3.1-4.6 L. Atrium dimensions 1.9-3.8 4.5 Post. Wall thickness 0.8-1.1 1.1 IV septum (thickness) 0.7-1.2 1.2 Post. Wall excursion 0.72-1.3 NORMAL Septal motion NORMAL Systolic motion R. Ventricular cavity 1.5-2.0 NORMAL LVEF 60% 55% Paradoxical septal wall motion NORMAL 2-D : NORMAL VALVES--NORMAL LEFT VENTRICULAR CONTRACTILITY-NO EFFUSION, NO THROMBUS, ENLARGED LEFT ATRIAL CAVITY--NORMAL LEFT VENTRICLE SIZE M-MODE: MV: NORMAL AV: NORMAL TV: NORMAL PV: CHAMBER SIZE: ENLARGED LEFT ATRIAL CAVITY WALL MOTION: NORMAL PERICARDIUM: NORMAL INTERPRETATION: 1. LEFT VENTRICULAR HYPERTROPHY WITH ENLARGED LEFT ATRIAL CAVITIES 2. NORMAL LEFT VENTRICULAR CONTRACTILITY 3. NORMAL VALVES MTDD
[2016-06-14] MEDS: PREVALITE PO SCH (14:59)
[2016-06-14] MEDS: INFUVITE ADULT 10 ML in D5%-1/4NS-KCL 20 MEQ/L IV SOL 1,000 ML IV SCH ×2 (16:01→16:15)
[2016-06-15] MEDS ORDERED: INFUVITE ADULT IV ONE (03:54)
[2016-06-15 04:33] LABS: BASOPHILS % (AUTO) 0.1 % (0.0-3.0); HEMATOCRIT 25.6 % (37.0-47.0); HEMOGLOBIN 8.6 g/dl (12.0-16.0); LYMPHOCYTES % (AUTO) 6.5 (10.0-50.0); MEAN CORPUSCULAR HEMOGLOBIN 26.5 pg (27.0-31.0); MEAN CORPUSCULAR HGB CONC 33.6 (31.8-35.4); MEAN CORPUSCULAR VOLUME 78.8 fl (81.0-99.0); MONOCYTES # (AUTO) 0.9 K/uL (0.4-2.0); MONOCYTES % (AUTO) 5.4 (0-10); NEUTROPHILS # (AUTO) 13.6 K/ul (2.0-6.9); PLATELET COUNT 255 10^3/uL (140-440); RED BLOOD COUNT 3.25 10^6/ul (4.20-5.40); WHITE BLOOD COUNT 15.68 K/ul (4.6-10.2)
[2016-06-15 04:54] LABS: ALBUMIN 2.2 g/dL (3.4-5.0); ALBUMIN/GLOBULIN RATIO 0.61; ANION GAP 14.4; BILIRUBIN,TOTAL 0.2 mg/dL (0.00-1.20); BUN/CREATININE RATIO 30.59; CALCIUM 8.2 mg/dL (8.2-10.2); CREATININE 1.34 mg/dL (0.60-1.30); POTASSIUM 4.4 mmol/L (3.5-5.10); TOTAL PROTEIN 5.8 g/dL (5.8-8.1)
[2016-06-15] MEDS: ALBUTEROL 0.083% NEB NEB SCH ×2 (04:58→10:13)
[2016-06-15] MEDS: LYRICA PO SCH ×2 (05:09→12:43)
[2016-06-15] MEDS: INFUVITE ADULT 10 ML in D5%-1/4NS-KCL 20 MEQ/L IV SOL 1,000 ML IV SCH (05:09)
[2016-06-15] MEDS: SYNTHROID PO SCH (05:32)
[2016-06-15] MEDS: FLONASE NAS SCH (08:07)
[2016-06-15] MEDS: ADVAIR 250-50 DISKUS IH SCH (08:07)
[2016-06-15] MEDS: DECADRON 4 MG/ML SDV IM SCH (08:08)
[2016-06-15] MEDS: LOPRESSOR PO SCH (08:09)
[2016-06-15] MEDS: PLAVIX PO SCH (08:09)
[2016-06-15] MEDS: COZAAR PO SCH (08:09)
[2016-06-15] MEDS: INVANZ IV SCH (08:51)
[2016-06-15] MEDS: SODIUM CHLORIDE IV SCH (08:51)
[2016-06-15] MEDS ORDERED: AVELOX 400 MG in PREMIX 250 ML NS 1 BAG IV SCH (09:30)
[2016-06-15] MEDS ORDERED: LIDOCAINE 1 % AMP 5 ML (SUTURES) ID STA (09:55)
[2016-06-15 09:56] VITALS: BP 105/70; TEMP 97.6
--- NOTE | 2016-06-15 11:09 | HP ---
CHIEF COMPLAINT: Shortness of breath. HISTORY OF PRESENT ILLNESS: The [facility] had contacted me with regards to this patient. The nurse did tell me that the patient is experiencing shortness of breath with weakness. Her blood pressure is lower. I directed the nurse from the half-way to send the patient to the emergency room, which she did. This patient was evaluated in the emergency room and was found to have an elevated CK, plus MB and Troponin. The patient, however, denied any chest pain. The patient was admitted to this facility after discussion with regards to pursuing or not pursuing the etiology of the elevated CK, plus MB and Troponin. The relatives do not want to pursue further testing such as cardiac catheterization for this patient. The patient has a fracture, compound of the left thumb, which was treated at a [facility]. Chest CT done at the emergency room showed atelectasis, less likely to be pneumonia. Chest x-ray showed patchy bibasilar atelectasis and/or pneumonia. PAST PERSONAL HISTORY: The had been admitted to this facility for urinary tract infection, e.coli, ESBL positive. A number of admissions secondary to acute exacerbation of chronic obstructive lung disease, chronic kidney disease stage III to IV, anemia, history of congestive heart failure, GERD, some mild senile dementia, hearing loss, plus depression and anxiety. 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 The pain is experiencing pain in both lower extremities treated with Lyrica. Hypothyroidism on replacement therapy. Syncope secondary to orthostatic hypotension. The patient is hypertensive on medication. The patient had never been documented to have a three second pause to cause the syncope. She had previous falls resulting to fracture. Peripheral arterial disease, absent tibial pauses, episodes of dizziness and was seen by a consulting in [place], Neurologist. She was admitted also for a pneumonia a few months ago. FAMILY HISTORY: Son had some MCI and probably also PTSD resulting from his service in the . SOCIAL HISTORY: The patient is a and now resides at [facility]. She does not smoke any cigarettes or use any tobacco products and no alcoholic beverages. MEDICATIONS: Prior to this admission. Multivitamin one daily Donepezil 10 mg daily Levothyroxine 75 mcg daily Advair Diskus 250/50 one puff twice a day Plavix 75 mg daily Cholestyramine 25 grams dissolved in water or juice daily Metoprolol Tartrate 12.5 mg twice a day Tylenol 325 mg one to two every 6 hours prn Losartan 25 mg daily Flonase one to two sprays to each nostril twice a day if needed Lyrica 75 mg every 8 hours Pantoprazole 40 mg daily before a meal Amlodipine 2.5 mg daily Cranberry capsule 500 mg twice a day Vitamin D3 50,000 units weekly Tramadol 50 mg tablet twice a day as needed Hydroxyzine 25 mg tablet four times a day Zofran 4 mg every 6 hours prn DuoNeb one vial per nebulizer every 8 hours prn Guaifenesin/Dextromethorphan 10 cc four times a day prn Loperamide 2 mg capsule every 4 hours prn Magnesium Hydroxide (Milk of Magnesia) 30 cc twice a day prn ALLERGIES: Aspirin, Cephalexin, Hydrochlorothiazide, Zyvox, Lisinopril, Nisoldipine, Penicillin, Sulfa, Theophylline, and Accolate. REVIEW OF SYSTEMS: CONSTITUTIONAL: The patient had no fever or chills from the half-way, but is very weak. ENGINEERING TEAM SUPERVISOR: The patient is drowsy, but arousable. No headache. VISUAL: The patient denied any blurred vision or double vision or transient loss of vision. AUDITORY: The patient has difficulty hearing. Denies any dizziness now. No pain or drainage. RESPIRATORY: The patient is short of breath and had been increasing. No hemoptysis. CARDIOVASCULAR: Denies any chest pain. GASTROINTESTINAL: Appetite is poor. No nausea or vomiting. GENITOURINARY: Denies any pain or urination, but does have incontinence. MUSCULOSKELETAL: The patient is complaining of pain in the left thumb area and hand from the fracture. It has a bandage, as well as a splint. INTEGUMENT: No rash or pruritus. Skin on the left thumb is swollen from the injury. Some redness. ENDOCRINE: The patient has no polyuria or polydipsia. She does have hypothyroidism and is being replaced. HEMATOLOGIC: No history of prolonged bleeding. PSYCHIATRIC: The patient does arouse when you call her name and then she goes back to sleep. PHYSICAL EXAMINATION: GENERAL: We have an 89 year old female who is more or less drowsy with rapid respiration and dyspneic who was admitted to the hospital for further care because of the above. VITAL SIGNS: Temperature is 97.8, pulse 118, blood pressure 119/82, respiratory rate 24, oxygen saturation 88. She is 5'4" and 140 pounds in the emergency room. BMI 24, but on the floor the patient is 5'5" weighing 127 pounds and 5.4 ounces, BMI 21.2. I am not sure which of these readings are correct. HEAD: Unremarkable. FACE: Symmetrical and equal with no facial weakness. EYES: Pupils equal/reactive to light. Conjunctivae not pale. Sclerae not icteric. MOUTH: Dentures both upper and lower. THROAT: No inflammation, tumors or exudate. NECK: No masses. No bruit. No tenderness. CHEST: Asymmetrical with the absence of the left breast from breast carcinoma operated several years ago. Expansion good. LUNGS: Breath sounds are heard in both sides with rales on both lung bautista crepitant. No expiratory wheezing. Breath sounds diminished. HEART: Audible and regular with good tones. No murmurs. ABDOMEN: Flat, soft with no remarkable tenderness and no guarding. Bowel sounds are active. No masses palpable. LOWER EXTREMITIES: Some ankle and leg edema. The posterior tibials are absent. UPPER EXTREMITIES: Asymmetrical with the fracture of the left thumb which is being covered with dressing at this time. ASSESSMENT: 1. MYOCARDIAL ISCHEMIA OR INFARCTION 2. DYSPNEA, SECONDARY TO #1. 3. URINARY TRACT INFECTION 4. HISTORY OF HYPERTENSION TREATED 5. HISTORY OF ORTHOSTATIC HYPOTENSION 6. HISTORY OF LEFT BREAST CARCINOMA OPERATED 7. HISTORY OF PERIPHERAL NEUROPATHY SECONDARY TO CHEMOTHERAPY, PERSISTENT AND SYMPTOMATIC 8. HISTORY OF ASTHMA 9. HISTORY OF MILD SENILE DEMENTIA 10. HISTORY OF HEARING LOSS 11. HISTORY OF REPEATED SYNCOPAL EPISODES 12. PERIPHERAL ARTERIAL DISEASE, ABSENT POSTERIOR TIBIAL PULSES 13. ELEVATED BNP-PROBABLY CONGESTIVE HEART FAILURE MTDD
--- NOTE | 2016-06-15 12:54 | PCM.CONS ---
CONSULTING PROVIDER: Dr. ARON GODINEZ ATTENDING PROVIDER: Dr. LATRELL [facility] DATE OF SERVICE: 06/15/16 SUBJECTIVE: This 89 year old WHITE/ F was hospitalized 06/12/16. The patient is hospitalized with pneumonia and UTI. The patient has abnormal EKG with ST-T wave changes in anterolateral leads. No symptoms of CHF or coronary insufficiency. [facility] and [facility]. She was seen by purchasing expeditor there. Cardiovascular status is stable now with no evidence of coronary insufficiency or CHF. The patient has pneumonia and UTI. REVIEW OF SYSTEMS: CONSTITUTIONAL: The patient looks better. No night sweats. No fatigue, malaise, lethargy. No fever or chills. HEENT: Eyes: No visual changes. No eye pain. No eye discharge. ENT: No runny nose. No epistaxis. No sinus pain. No odynophagia. No congestion. RESPIRATORY: Mild cough and congestion. No hemoptysis. CARDIOVASCULAR: No angina symptoms. No CHF symptoms. No atypical chest pain for CAD. No palpitations. No shortness of breath. No PND, no orthopnea. GASTROINTESTINAL: No abdominal pain. No nausea or vomiting. No diarrhea or constipation. No hematemesis. No hematochezia. GENITOURINARY: No urgency. No frequency. No dysuria. No hematuria. No obstructive symptoms. No discharge. No pain. No significant abnormal bleeding. MUSCULOSKELETAL: No musculoskeletal pain; no joint swelling. NEUROLOGICAL: Awake, alert and oriented. No headache. No neck pain. No syncope. No seizures. No dizziness. PSYCHIATRIC: Not anxious. No depression. No suicidal thoughts. No homicidal thoughts. SKIN: No rash. ENDOCRINE: No unexplained weight loss. No weight gain. HEMATOLOGIC/LYMPHATIC: No anemia. No purpura. No petechiae. No prolonged or excessive bleeding. No palpable lymph nodes. PHYSICAL EXAMINATION: GENERAL: The patient is awake, alert and oriented, lying in bed in no distress. VITAL SIGNS: Temperature 97.2 F, Pulse 106, Respiratory Rate 22, BP 119/67, Pulse Ox 96% HEENT: Head normocephalic, atraumatic. Eyes: Extraocular muscles are intact. Pupils are equal, round and reactive to light and accommodation. Ears: No lesions. Nose appeared normal. Throat: No exudate or erythema. NECK: Supple. No JVD, no carotid bruit. No lymphadenopathy or thyromegaly. LUNGS: Clear to auscultation. Percussion note normal. Chest symmetrical. HEART: S1, S2; difficult to hear murmur due to noisy respirations. No cyanosis or clubbing. No ascites. Pulses: Dorsalis pedis and posterior tibial pulses +1 to +2 both sides. ABDOMEN: Soft. Non-tender. Bowel sounds active. No CVA tenderness. No mass felt. EXTREMITIES: No clubbing, cyanosis or edema. Full range of motion of all extremities, equal. NEUROLOGIC: No focal deficit. Cranial nerves II through XII are grossly intact. No headache, no double vision or headache. SKIN: Not dry. Intact. Turgor-normal. LYMPHATIC: No palpable lymph nodes/no lymphedema. MUSCULOSKELETAL: Normal joints with no swelling. Muscle tone is normal. LAB REVIEW: 06/15/16 04:31 06/15/16 04:31 06/15/16 04:31: WBC 15.68 H D, RBC 3.25 L, Hgb 8.6 L, Hct 25.6 L, MCV 78.8 L, MCH 26.5 L, MCHC 33.6, RDW Coeff of Yoseph 16.5 H, Plt Count 255, Immature Gran % ( Auto) 1.0, Neut % (Auto) 87.0, Lymph % (Auto) 6.5 L, Dougherty % (Auto) 5.4, Eos % ( Auto) 0.0, Baso % (Auto) 0.1, Immature Gran # (Auto) 0.2, Neut # 13.6 H, Lymph # 1.0, Dougherty # 0.9, Eos # 0.0, Baso # 0.0, Sodium 140, Potassium 4.4, Chloride 114 H, Carbon Dioxide 16 L, Anion Gap 14.4, BUN 41 H, Creatinine 1.34 H, Estimated GFR (MDRD) 37.00, BUN/Creatinine Ratio 30.59, Glucose 218 H, Calcium 8.2, Total Bilirubin 0.20, AST 24, ALT 28, Alkaline Phosphatase 56, Total Protein 5.8, Albumin 2.2 L, Globulin 3.6, Albumin/Globulin Ratio 0.61 06/14/16 05:06: Procalcitonin 0.18 ASSESSMENT: 1. Stable cardiovascular status with abnormal EKG 2. Pneumonia 3. Hypertension 4. UTI with gram positive cocci RECOMMENDATIONS/PLAN: The patient is offered cardiac catheterization and possibility of stent but the daughter declined. The patient has dementia. The patient's overall medical status is stable but she has multiple medical problems with overall poor health status. I agree with the family's decision as long as patient is not symptomatic and within her activity level, she can carry on her day to day activity and should leave her alone. I agree with treatment of pneumonia and UTI. Plan and coordination of the patient's care discussed in the presence of Wrap Checker and Nurse. CONDITION: Stable SCRIBED BY: ANASTASIA KEITH Transcriber scribed while in presence of service performed by Dr. ARON GODINEZ on 06/15/16 ([id number])
[2016-06-15] MEDS: PREVALITE PO SCH (13:16)
--- NOTE | 2016-06-15 14:08 | PN ---
DATE OF VISIT: 06/13/16 SUBJECTIVE: The patient is drowsy but arousable and answers questions. She recognizes her daughter and grandson. The left thumb has significant necrotic tissue. This will be debrided today. The patient at 6:00 in the evening today showed a temperature of 96.8, pulse 82, blood pressure 102/37, respiratory rate 18, oxygen saturation 92% at 2 liters. Still has some product cough. Her BNP is lower then yesterday. No diarrhetic was given. CT scan of the chest does not mentioned any interstitial edema or any signs of congestive heart failure. The patient's wound culture is gram negative rods and the urine culture also showed gram negative rods. There is no ID and sensitivity at this time. This patient is receiving moxifloxacin and Ertapenem. Ertapenem dose is reduce on account of the patient's renal profile. Cap debridement was carried today on the left thumb. None of the sutures had ever healed. Tissue is nephrotic the bone is exposed where the fracture ends. The debridement was carried without any anesthesia. The debridement was done removing the tissue. The area was prepped with Betadine followed by Hydrogen peroxide. A moist dressing was applied and further debridement will be done tomorrow. The daughter Krystal was asking me what would happen and I told her that we will just have to control the infection now and might be that the thumb might have to be amputated but that will be a judgement made. Probably have to ask an orthopedic surgeon to see this patient. The suture were done at [facility]. I need to look at those records whither this patient was referred to an orthopedic surgeon for a followup. The patient was seen on consultation because of elevated CK plus MB and Troponin. DILEEPD
--- NOTE | 2016-06-15 14:23 | PN ---
DATE OF VISIT: 06/14/16 The patient is alert today and looking much better. She did recognize me very well. She is not as drowsy as yesterday. The patient's arm still has to be elevated. There is still some necrotic tissue and we will dbride that in the morning with possible anesthesia. I did call Dr. Gregory's office, since this patient had an appointment with him for 06/09/2016. She was confined at [facility] 06/08/16 to 06/10/2016. I felt that maybe the thumb would need to be just amputated, since the fracture is not set and there is no skin left on the dorsal surface of the thumb. It would require extensive surgical procedure probably to save the thumb. The wound would be left open after the removal of the bone. This probably would hasten the treatment of this problem. I discussed this with her grandson. VITAL SIGNS: At 6 p.m. showed a temperature of 97.5, pulse 98, blood pressure 114/63, respiratory rate 15, oxygen saturation 97 at 2 liters of oxygen. WBC now is down to 25,000 from 30,000 on admission. There is severe anemia with hemoglobin 9.7 and hematocrit 29.1. There are no bands in this differential. The edema in the rest of the hand is also less, but still significant at this time. MTDD
--- NOTE | 2016-06-16 15:26 | DS ---
PATIENT IDENTIFICATION: 89 year old female was admitted to the hospital 06/12/16 from the emergency room. The patient seen at the emergency room because of shortness of breath with increased weakness, lethargy and low blood pressure. The patient in the course of the evaluation was found to have an elevated CK, plus MB, plus Troponin. The family just wanted to keep her in the hospital for this problem. HOSPITAL COURSE: This patient, however, has a comminuted compound fracture of the left thumb. The area is infected. Suture line had never healed and the tissue is necrotic. All of this area was debrided on 06/13/16. Wound culture plus blood culture, as well as culture of the wound was done in the emergency room. The patient was given Moxifloxacin by the emergency room MD. I had added Ertapenem 500 mg IV daily. This patient had a history of e.coli, ESBL positive in the past. The urinalysis was abnormal. LUNGS: The patient's breath sounds are diminished with rales on both lung bautista. This patient had rales in the past. She had been known to have bronchiectasis. These rales over time, however, has decreased. No expiratory wheezing. HEART: The heart is regular with good tones and no murmurs. ABDOMEN: Unremarkable. The patient on the second hospital day was much more alert and responsive. We still did not have any results of the cultures at this time. Debridement was carried out and the bone fragments are exposed. The dorsal skin has been necrotic and this was removed with debridement. The rest of the left hand is also edematous and tender. Moist dressing was left in place. The dressing was changed three times a day. The patient's culture did come back and the urine culture showed gram negative rods, e.coli, ESBL negative and sensitive to Ertapenem and a host of medications, except Ampicillin and intermediate to Ampicillin/Sulbactam. Wound cultures did grow Proteus Mirabilis, gram negative rods, again sensitive to most of the medications except Cipro and Levofloxacin. It is sensitive to Ertapenem. Blood cultures are positive anaerobe gram positive cocci with streptococcus pyogenes group A and sensitive to Ampicillin, Erythromycin, Levofloxacin, Linezolid and Vancomycin. It is presumably sensitive also to Ertapenem, although it was not listed, but the bacteria is sensitive to Ampicillin. On 06/15/16, the wound again is debrided. The bone fragments again are exposed. The swelling in the left hand has regressed. The lungs still has rales in both lung bautista, but the chest CT does not indicate any pneumonia. This patient upon discharge from [facility] on 06/10/2016 had an appointment to see Dr. Anderson Gregory on 07/11/2016. I tried to reach Dr. Gregory on 06/14/16, but I was not successful. I did talk to a hospitalist at [facility], Dr. Alvarez and recited the patient's problems. He accepted the patient for transfer. I did inform him that this patient had a follow up appointment with Dr. Anderson Gregory. This appointment must have been made while the patient was in the hospital at [facility]. The patient's daughter was in the hospital and I did advise Krystal that she is going to [facility] for further care of the fracture with infection. I told her that I don't know what they will do. There is a good amount of tissue that is lost and the bone is exposed with infection and that removal of the bone might speed the resolution of the infection. However, I would leave that to the orthopedic surgeon to decide on what would be best for that thumb with infection. The patient is then transferred from this facility to [facility] and transferred via ambulance. FINAL DIAGNOSES: 1. INFECTED COMMINUTED COMPOUND FRACTURE LEFT THUMB 2. URINARY TRACT INFECTION, E.COLI NEGATIVE 3. BACTEREMIA SECONDARY TO STREPTOCOCCUS PYOGENES 4. WOUND CULTURE, PROTEUS MIRABILIS 5. CONGESTIVE HEART FAILURE, EARLY 6. MYOCARDIAL ISCHEMIA 7. HISTORY OF HYPERTENSION TREATED 8. HISTORY OF LEFT BREAST CARCINOMA OPERATED AND TREATED WITH CHEMOTHERAPY 9. PERIPHERAL NEUROPATHY SECONDARY TO CHEMOTHERAPY 10. HISTORY OF ASTHMA 11. HISTORY OF HEARING LOSS 12. HISTORY OF REPEATED SYNCOPAL EPISODES 13. PERIPHERAL ARTERIAL DISEASE, ABSENT POSTERIOR TIBIALS 14. SENILE DEMENTIA, MILD PROGNOSIS: Guarded to poor. MTDD
[2016-06-17] MEDS ORDERED: DRISDOL PO SCH (09:00)
[2016-06-19] MEDS ORDERED: CHOLECALCIFEROL 50000 UNIT PO SCH (09:00)
--- NOTE | 2016-07-19 14:21 | CONS ---
DATE OF CONSULTATION: 06/13/16 REASON FOR CONSULTATION: Worsening renal failure, elevated cardiac markers and enzymes HISTORY OF PRESENT ILLNESS: This is an 89-year-old female who has dementia and difficulty communicating. While trying to dress herself at the shelter, she fell to the floor fracturing her left thumb and causing multiple areas of ecchymosis to her left side, left shoulder, arms and legs. She was taken to [facility] where Dr. Gregory, orthopaedics, elected to decline surgical intervention for repair of the fracture. The ER physician sutured the open area and discharged her back to the shelter. REVIEW OF SYSTEMS: CONSTITUTIONAL: Fever. No fatigue or malaise. HEENT: Eyes: No visual changes. No eye pain. No eye discharge. ENT: Questionable sinus drainage. No epistaxis. No sinus pain. No sore throat. No odynophagia. No ear pain. No congestion. RESPIRATORY: Occasional loose cough. No congestion. No hemoptysis. CARDIOVASCULAR: The patient gives no indication of having chest pain or shortness of breath. Mild ankle edema. No wheezing. No PND. Positive for orthopnea per family. GASTROINTESTINAL: Diarrhea 2 to 3 times daily times three weeks - none now. No melena. No abdominal pain. No nausea or vomiting. No hematemesis. No hematochezia. GENITOURINARY: Incontinent. De Santiago catheter in place - urine is pale yellow with sediment. MUSCULOSKELETAL: No musculoskeletal pain. No joint swelling. NEUROLOGICAL: No headache. No neck pain. No syncope. No seizures. No dizziness. PSYCHIATRIC: Not anxious. No depression. No suicidal thoughts. No homicidal thoughts. SKIN: No rash. Warm and dry. ENDOCRINE: Decubitus to coccyx 2 x 1 cm wound, pink wound bed. HEMATOLOGIC/LYMPHATIC: No anemia. No purpura. No petechiae. No prolonged or excessive bleeding. No palpable lymph nodes. MEDICATIONS: Duonebs Tirosint Ultram Cholestyramine Guaifenesin DM MVI Zofran Protonix Tylenol Norvasc Cozaar MOM Cranberry Flonase Hydroxyzine HCL Loperamide HCL Vitamin D Plavix Donepezil HCL Advair Lyrica Lopressor ALLERGIES: ASA, CEPHALEXIN, MONOHYDRATE, HCTZ, HYDROCODONE, SULFAMETHAZINE, SULAR ACCOLATE, ZYVOX PAST MEDICAL/SURGICAL HISTORY: Pneumonia Acute/chronic renal failure Open displaced fracture proximal phalanx left thumb 06/08/16 Coronary artery disease and remote history of SC Valvular heart disease Hypertension Anemia COPD TIA Hypothyroidism Anxiety Alzheimer's dementia Osteoarthritis Cholecystectomy Breast cancer left mastectomy and chemotherapy Hysterectomy Back surgery 2008 Left hip arthroplasty SOCIAL/PERSONAL/FAMILY HISTORY: The patient is . No alcohol use. Nonsmoker. PHYSICAL EXAMINATION: VITAL SIGNS: Pulse 102, BP 112/66, temperature 98.9, respiratory rate 25, 02 sat 91% with 3L. Height 5'5"; weight 127. HEENT: Head normocephalic, atraumatic. Eyes: Extraocular muscles are intact. Pupils are equal, round and reactive to light and accommodation. Ears: No lesions. Nose appeared normal. Throat: No exudate or erythema. NECK: Supple. No JVP, no carotid bruit. No lymphadenopathy or thyromegaly. LUNGS: Clear to auscultation. Percussion note normal. Chest symmetrical. HEART: S1, S2, no S3. No murmurs. No cyanosis or clubbing. No ascites. Pulses: Dorsalis pedis and posterior tibial pulses +1 both sides. ABDOMEN: Soft. Nontender. Bowel sounds active. No CVA tenderness. No mass felt. EXTREMITIES: No edema. Full range of motion of all extremities, equal. NEUROLOGIC: No focal deficit. Cranial nerves II through XII are grossly intact. No headache, no double vision or headache. SKIN: Not dry. Intact. Turgor - normal. LYMPHATIC: No palpable lymph nodes/no lymphedema. MUSCULOSKELETAL: Normal joints with no swelling. Muscle tone is normal. ASSESSMENT: 1. ABNORMAL EKG/ISCHEMIA ? 2. CHF ? 3. RESPIRATORY FAILURE WITH PNEUMONIA/BRONCHITIS 4. HYPERTENSION 5. COPD 6. PERIPHERAL ARTERIAL DISEASE 7. DEMENTIA LABS/X-RAYS/INVESTIGATIONS/INTERIM RELEVANT DATA: CKMB 6.9 and 6.8; troponin 1.0140 and 0.7830; BNP 1450 and 1286. WBC 29.21, Hemoglobin 10.5, platelets 251, hematocrit 30.8. Sodium 144, chloride 116, BUN 57, glucose 125, K+ 3.9, c02 18, creatinine 2.12. ABGs on room air: pH 7.370, pc02 28.4, p02 40.0, HC03 16.4, TC02 17, CT chest without contrast probable atelectasis, less likely pneumonia. Blood culture and sensitivity negative. Urine culture and sensitivity E. coli; left thumb culture and sensitivity Proteus Mirabilis. PLAN/RECOMMENDATIONS: 1. Echo 2D and 'M'Mode 2. Review medications 3. Telemetry 4. 1 cc Decadron 4 mg Echo done and showed normal LV contractility, enlarged LA cavity. The patient was seen by Dr. Harvey at [facility] a couple of weeks ago. Thanks for the referral, will follow. WILLIAN
== END 2016-06-15 13:10 | disposition short-term general hospital (02) | DRG 602 ==
LOC: ED 08:11 → MEDSURG B 12:28
PROVIDERS: ADMIT General Practice; ATTEND General Practice
PROC: 0HDGXZZ Extraction of Left Hand Skin, External Approach (ICD-10-PCS; principal; 2016-06-13)
DX: L08.9 Local infection of the skin and subcutaneous tissue, unspecified (principal); S62.512G Displaced fracture of proximal phalanx of left thumb, subsequent encounter for fracture with delayed healing; J18.9 Pneumonia, unspecified organism; N39.0 Urinary tract infection, site not specified; R78.81 Bacteremia; I51.7 Cardiomegaly; R94.31 Abnormal electrocardiogram [ECG] [EKG]; R06.02 Shortness of breath; I73.89 Other specified peripheral vascular diseases; I10 Essential (primary) hypertension; F03.90 Unspecified dementia, unspecified severity, without behavioral disturbance, psychotic disturbance, mood disturbance, and anxiety; B96.4 Proteus (mirabilis) (morganii) as the cause of diseases classified elsewhere; B96.20 Unspecified Escherichia coli [E. coli] as the cause of diseases classified elsewhere; B95.4 Other streptococcus as the cause of diseases classified elsewhere; I50.9 Heart failure, unspecified; G62.0 Drug-induced polyneuropathy; T45.1X5S Adverse effect of antineoplastic and immunosuppressive drugs, sequela; J45.909 Unspecified asthma, uncomplicated; E03.9 Hypothyroidism, unspecified; Z86.79 Personal history of other diseases of the circulatory system; Z79.01 Long term (current) use of anticoagulants; Z79.899 Other long term (current) drug therapy; Z86.73 Personal history of transient ischemic attack (TIA), and cerebral infarction without residual deficits
CPT/HCPCS: 36415; 80053; 81001; 82550; 82553; 82803; 83605; 83880; 84145; 84484; 85025; 85379; 85610; 85730; 87040; 87070; 87081; 87086; 87186; 93005; 93010; 94640; 96361; 96365; 99223; 99232; 99239; 99284

== ENCOUNTER 2016-06-15 13:05 | Outpatient (CLI) ==
[2012-10-09 12:01] VITALS: TEMP 97.3
== END 2016-06-15 13:06 ==
LOC: AMBL 13:05
PROVIDERS: ATTEND Emergency Medicine
DX: J18.9 Pneumonia, unspecified organism (principal); R41.0 Disorientation, unspecified; S62.502B Fracture of unspecified phalanx of left thumb, initial encounter for open fracture

== ENCOUNTER 2016-06-26 12:01 | Outpatient (CLI) ==
[2012-10-09 12:01] VITALS: TEMP 97.3
[2016-06-26 12:25] VITALS: BMI 22.5
== END 2016-06-26 12:02 ==
LOC: AMBL 12:01
PROVIDERS: ATTEND Emergency Medicine
DX: R53.1 Weakness (principal); F03.90 Unspecified dementia, unspecified severity, without behavioral disturbance, psychotic disturbance, mood disturbance, and anxiety; R09.89 Other specified symptoms and signs involving the circulatory and respiratory systems

== ENCOUNTER 2016-06-26 12:19 | Emergency (ER) ==
[2016-06-26 12:25] VITALS: BP 104/54; TEMP 98.4; BMI 22.5
[2016-06-26] MEDS: DECADRON 4 MG/ML SDV IM STA (13:02)
[2016-06-26 13:04] LABS: BASOPHILS # (AUTO) 0.1 K/uL (0-0.2); BASOPHILS % (AUTO) 0.7 % (0.0-3.0); EOSINOPHILS # (AUTO) 0.3 K/ul (0.0-0.7); HEMATOCRIT 26.8 % (37.0-47.0); HEMOGLOBIN 8.7 g/dl (12.0-16.0); IMMATURE GRANULOCYTE % (AUTO) 0.4 % (0.0-5.0); LYMPHOCYTES % (AUTO) 12.7 (10.0-50.0); MEAN CORPUSCULAR HEMOGLOBIN 26.4 pg (27.0-31.0); MEAN CORPUSCULAR HGB CONC 32.5 (31.8-35.4); MEAN CORPUSCULAR VOLUME 81.5 fl (81.0-99.0); MONOCYTES # (AUTO) 0.8 K/uL (0.4-2.0); MONOCYTES % (AUTO) 10.6 (0-10); NEUTROPHILS # (AUTO) 5.5 K/ul (2.0-6.9); NEUTROPHILS % (AUTO) 71.6; PLATELET COUNT 328 10^3/uL (140-440); RED BLOOD COUNT 3.29 10^6/ul (4.20-5.40); WHITE BLOOD COUNT 7.66 K/ul (4.6-10.2)
--- NOTE | 2016-06-26 13:21 | ED.PDOC ---
General ED Provider: Dr. KERRY SOUZA Chief Complaint: Respiratory Complaint Stated Complaint: Patient is sent from the care home as she was looking weak , she is been treated for the URTI by Dr Hinton,. she is awake alert now. Time Seen by Physician: 13:19 Information Source: Patient, EMT [facility] and Triage Documentation Reviewed and Agree: Yes Respiratory Complaint Exam - Respiratory Complaint/Exam Symptoms Are: Resolved Timing: Intermittent Initial Severity: Mild Current Severity: Mild Location: Chest Character: Reports: Non-productive cough Aggravating: Reports: None Alleviating: Reports: None Associated Signs and Symptoms: Denies: Rapid breathing, Dyspnea, Fever, Chills, Chest pain, Pleuritic chest pain, Wheezing, Hemoptysis, Dizziness, Calf pain, Calf swelling, Edema, URI, Nasal congestion, Hoarseness, Sinus discomfort, Vomiting, Sore throat, Weight loss, Decreased oral intake, Increased thirst, Increased appetite, Increased urination Related History: Reports: Similar episode History of Healthcare-Acquired Pneumonia: No Related Surgical History: Reports: None Pulmonary Embolism Risk Factors: None Cardiac Risk Factors: Reports: None Pseudomonas Risk Factors: Reports: None Tuberculosis Risk Factors: Reports: None Status Asthmaticus Risk Factors: Reports: None Recent Stress Test: No Recent Echo/LV Function: No Current Antibiotic Use: No Current Asthma Medication Use: No Respiratory Distress: None Inadequate Respiratory Effort: No Dysphagia Present: No Stridor Present: No JVD Present: No Accessory Muscle Use: No Retractions: Not Present Diminished Breath Sounds: Yes Grunting Respirations: No Kussmaul Respirations: No Differential Diagnoses: Pneumonia, Bronchitis Review of Systems - Review Of Systems Constitutional: Reports: No symptoms Eyes: Reports: No symptoms Ears, Nose, Mouth, Throat: Reports: No symptoms Respiratory: Reports: Cough Cardiac: Reports: No symptoms GI: Reports: No symptoms : Reports: No symptoms Musculoskeletal: Reports: No symptoms Skin: Reports: No symptoms Neurological: Reports: Weakness Endocrine: Reports: No symptoms Hematologic/Lymphatic: Reports: No symptoms All Other Systems: Reviewed and Negative Past Medical History - Past Medical History Previously Healthy: No Endocrine: Reports: Hypothyroid Cardiovascular: Reports: Hypertension, Other ((aortic mitral valve on SKF NOTES )-NORMAL ON echo 07/10/12) Respiratory: Reports: COPD Hematological: Reports: None Gastrointestinal: Reports: GERD Genitourinary: Reports: Kidney stones, CKD Neuro/Psych: Reports: TIA, CVA, Depression, Dementia Musculoskeletal: Reports: Arthritis 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 Last Menstrual Period: n/a Other Pertinent Past Medical History: falls, nonrheumatic aortic valve disorder , mitral valve disorder, - Surgical History General Surgical History: Reports: Appendectomy, Cholecystectomy, Orthopedic ( LEFT HIP-hip replacement), Other (LEFT SIDE MASECTOMY, CATARACT) - Family History Family History: Reports: Unknown - Social History Smoking Status: Former smoker Hx Substance Use: No Alcohol Screening: None Physical Exam - Physical Exam Appearance: Well-appearing Eyes: EOMI, Conjunctiva clear ENT: Ears normal, Nose normal, Oropharynx normal Respiratory: Airway patent, Breath sounds clear, Breath sounds equal, Breath sounds diminished Cardiovascular: RRR, Pulses normal, No rub, No murmur GI/: Soft, Nontender, No masses, Bowel sounds normal, No Organomegaly Musculoskeletal: Normal strength, ROM intact, No edema, No calf tenderness Skin: Warm, Dry, Normal color Neurological: Sensation intact, Motor intact, Reflexes intact, Cranial nerves intact, Alert, Oriented Psychiatric: Affect appropriate, Mood appropriate Interpretation - Radiology Interpretation Radiology Interpretation By: ED Physician Radiology Results: Negative Exam Interpreted: CXR Critical Care Note - Critical Care Note Total Time (mins): 0 Course - Course Hematology/Chemistry: 06/26/16 12:55 06/26/16 12:55 Orders, Labs, Meds: Lab Review 06/26/16 12:55 WBC 7.66 RBC 3.29 L Hgb 8.7 L Hct 26.8 L MCV 81.5 MCH 26.4 L MCHC 32.5 RDW Coeff of Yoseph 15.9 H Plt Count 328 Immature Gran % (Auto) 0.4 Neut % (Auto) 71.6 Lymph % (Auto) 12.7 [place] % (Auto) 10.6 H Eos % (Auto) 4.0 Baso % (Auto) 0.7 Immature Gran # (Auto) 0.0 Neut # 5.5 Lymph # 1.0 [place] # 0.8 Eos # 0.3 Baso # 0.1 Sodium 139 Potassium 3.8 Chloride 107 Carbon Dioxide 24 Anion Gap 11.8 BUN 18 Creatinine 1.46 H Estimated GFR (MDRD) 34.00 BUN/Creatinine Ratio 12.32 Glucose 94 Calcium 8.2 Total Bilirubin 0.27 AST 20 ALT 13 Alkaline Phosphatase 93 Total Protein 6.3 Albumin 2.5 L Globulin 3.8 Albumin/Globulin Ratio 0.66 Orders Category Date Time Status CBC W/ AUTO DIFF Stat LAB 06/26/16 12:55 Completed CMP [COMPREHENSIVE METABOLIC PANEL] Stat LAB 06/26/16 12:55 Completed Dexamethasone 4 mg/ml Inj [Decadron 4 mg/ml Sdv] MEDS 06/26/16 12:44 Discontinued 4 mg IM ONCE STA CHEST, 1V AP ONLY Stat RADS 06/26/16 12:[address] HEAD W/O CONTRAST Stat RADS 06/26/16 12:44 Completed Medications Discontinued Medications Generic Name Dose Route Start Last Admin Trade Name Freq PRN Reason Stop Dose Admin Dexamethasone Sodium Phosphate 4 mg 06/26/16 12:44 06/26/16 13:02 Decadron 4 Mg/Ml Sdv IM 06/26/16 12:45 4 mg ONCE STA Administration Vital Signs: Temp Pulse Resp BP Pulse Ox 06/26/16 12:20 98.4 F 68 14 104/54 L 94 L Departure - Departure Time of Disposition: 13:53 Disposition: TSF OTHER Discharge Problem: Bronchitis, Altered mental status Instructions: Acute Bronchitis (ED) Condition: Stable Pt referred to PMD for follow-up: Yes Additional Instructions: z pack, as directed prednisone 10-po bid x 7 days duo nebs tid x 7 days feso4 324 po bid re check cbc in 2 weeks Allergies/Adverse Reactions: Allergies aspirin Adverse Reaction (Verified 06/26/16 12:31) cephalexin monohydrate [From Keflex] Adverse Reaction (Verified 06/26/16 12:31) hydrochlorothiazide Adverse Reaction (Verified 06/26/16 12:31) hydrocodone [Hydrocodone] Adverse Reaction (Verified 06/26/16 12:31) linezolid [From Zyvox] Adverse Reaction (Verified 06/26/16 12:31) lisinopril [From Prinivil] Adverse Reaction (Verified 06/26/16 12:31) nisoldipine [From Sular] Adverse Reaction (Verified 06/26/16 12:31) Penicillins Adverse Reaction (Verified 06/26/16 12:31) sulfamethazine [Sulfamethazine] Adverse Reaction (Verified 06/26/16 12:31) theophylline Adverse Reaction (Verified 06/26/16 12:31) zafirlukast [From Accolate] Adverse Reaction (Verified 06/26/16 12:31) Home Medications: Ambulatory Orders Clopidogrel Bisulfate [Plavix] 75 mg PO DAILY 10/04/12 Donepezil HCl 10 mg PO BEDTIME 10/04/12 Fluticasone/Salmeterol 250/50 [Advair 250-50 Diskus] 1 puff IH BID 10/04/12 Levothyroxine Sodium [Tirosint] 75 mcg PO DAILY 10/04/12 Multivitamin [Multi-Vitamin Daily] 1 cap PO DAILY 10/04/12 Metoprolol Tartrate [Lopressor] 12.5 mg PO BID #30 tablet 12/17/13 Acetaminophen [Tylenol] 1 - 2 tab PO Q6H PRN 07/29/14 Fluticasone Propionate [Flonase] 2 spray SONNY BID #1 spray.susp 08/05/14 Losartan Potassium [Cozaar] 25 mg PO DAILY #30 tablet 08/05/14 Pantoprazole Sodium 40 mg PO DAILY 12/08/14 Amlodipine Besylate [Norvasc] 2.5 mg PO DAILY 01/01/15 Cranberry 500 mg PO BID #30 capsule 01/12/15 Cholecalciferol (Vitamin D3) [Vitamin D3] 50,000 units PO WEEKLY 01/27/15 Hydroxyzine HCl 25 mg PO QID 03/05/16 Ondansetron HCl [Zofran] 4 mg PO Q6H PRN 03/05/16 Ipratropium/Albuterol Neb [Duoneb] 1 vial NEB RTQ8H #1 vial.neb 03/11/16 Loperamide HCl [Loperamide] 2 mg PO Q4HR PRN 06/12/16 Doxycycline Hyclate 100 mg PO BID 06/26/16 Ipratropium/Albuterol Sulfate [Combivent Respimat Inhal [place]] 1 spray IH QID Magnesium Hydroxide [Milk of Magnesia] 30 ml PO BID PRN 06/26/16 Pregabalin [Lyrica] 150 mg PO TID 06/26/16 Tramadol HCl [Ultram] 50 mg PO TID 06/26/16 Disposition Discussed With: Patient, Family
[2016-06-26 13:23] LABS: ALBUMIN 2.5 g/dL (3.4-5.0); ALBUMIN/GLOBULIN RATIO 0.66; ANION GAP 11.8; BILIRUBIN,TOTAL 0.27 mg/dL (0.00-1.20); BUN/CREATININE RATIO 12.32; CALCIUM 8.2 mg/dL (8.2-10.2); CREATININE 1.46 mg/dL (0.60-1.30); POTASSIUM 3.8 mmol/L (3.5-5.10); TOTAL PROTEIN 6.3 g/dL (5.8-8.1)
--- NOTE | 2016-06-26 13:25 | DI ---
EXAM: Single view of the chest. History: Coughing. Comparison: Chest radiograph 06/12/2016, chest CT 06/12/2016 Findings: Heart is mildly enlarged. Atherosclerotic vascular calcifications. The bibasilar lung i nfiltrates have improved with minimal residual seen in the left lower lobe. No developing opacities . No definite pleural fluid and no pneumothorax. Surgical clips seen within the left axilla. Visu alized osseous structures unchanged. Impression: Mild residual left lower lobe lung infiltrate.
--- NOTE | 2016-06-26 13:36 | CT ---
Examination: CT head without contrast 06/26/2016 Clinical information: Altered mental status. Comparison: 02/14/2015. TECHNIQUE: Noncontrast helical imaging from the foramen magnum to the vertex. 5 mm axial, 3 mm sag ittal and 3 mm coronal images are submitted for review. FINDINGS: There is no evidence of acute intracranial hemorrhage. The ventricles are normal in size and configuration. Mild diffuse cerebral atrophy. There is no mass effect, midline shift or extra -axial abnormality. There are moderate chronic microvascular ischemic changes within the supratento rial white matter. There are chronic lacunar infarcts within the left basal ganglia and left thalam us. There is bacbock-white matter differentiation. The calvarium is intact. Minor intracranial ather osclerotic vascular calcifications are seen. Impression: 1. No CT evidence of acute intracranial abnormality. 2. Moderate chronic microvascular ischemic changes within the supratentorial white matter. Chronic lacunar infarcts left basal ganglia and left thalamus. 3. Intracranial ASVD. 4. Mild cerebral atrophy.
== END 2016-06-26 14:35 | disposition short-term general hospital (02) ==
LOC: ED 12:19
DX: J20.9 Acute bronchitis, unspecified (principal); R41.82 Altered mental status, unspecified; Z79.899 Other long term (current) drug therapy
CPT/HCPCS: 36415; 80053; 85025; 96372; 99283

== ENCOUNTER 2016-06-30 12:22 | Outpatient (CLI) ==
[2012-10-09 12:01] VITALS: TEMP 97.3
== END 2016-06-30 12:23 | disposition home or self-care (01) ==
LOC: NONPT 12:22
PROVIDERS: ATTEND General Practice
DX: A49.02 Methicillin resistant Staphylococcus aureus infection, unspecified site (principal); Z98.890 Other specified postprocedural states
CPT/HCPCS: 87070; 87186

== ENCOUNTER 2016-07-11 09:37 | Outpatient (CLI) ==
[2012-10-09 12:01] VITALS: TEMP 97.3
== END 2016-07-11 09:38 | disposition home or self-care (01) ==
LOC: NONPT 09:37
PROVIDERS: ATTEND General Practice
DX: S61.402A Unspecified open wound of left hand, initial encounter (principal)
CPT/HCPCS: 87070

== ENCOUNTER 2016-11-10 11:00 | Outpatient (CLI) ==
[2012-10-09 12:01] VITALS: TEMP 97.3
[2016-11-10 11:10] LABS: BILIRUBIN,URINE Negative (NEGATIVE); KETONES,URINE Negative (NEGATIVE); LEUKOCYTE ESTERASE ,URINE Negative (NEGATIVE); NITRITE,URINE Negative (NEGATIVE); PROTEIN,URINE Negative (NEGATIVE); URINE, BLOOD Negative (NEGATIVE)
[2016-11-10 11:13] LABS: ADD URINE MICROSCOPIC NO
== END 2016-11-10 11:01 | disposition home or self-care (01) ==
LOC: NONPT 11:00
PROVIDERS: ATTEND General Practice
DX: R53.1 Weakness (principal)
CPT/HCPCS: 81001

== ENCOUNTER 2017-01-14 20:05 | Emergency (ER) | payer OTHER ==
[2017-01-14 20:28] VITALS: BP 188/79; TEMP 98.1; BMI 25.7
--- NOTE | 2017-01-14 20:44 | ED.PDOC ---
General ED Provider: Dr. BOB VILLEDA Chief Complaint: Fall Stated Complaint: Patient is an 89 year old resident of [place] who is brought to the ER with fall off her wheelchair when she reached down to get a Tissue. She hit her head and bruising right hand. There was no reported loss of consciousness. Time Seen by Physician: 20:41 Mode of Arrival: Ambulance Information Source: Patient, Prison, EMT [facility] Documentation Reviewed and Agree: Yes Trauma/Injury Complaint Exam - Trauma Complaint/Exam Location of Pain or Injury: Reports: Head, RUE, RLE (knee abrassion) Mechanism of Injury: Reports: Fall (from a wheel chair) Onset/Duration: 1 hour ago Symptoms Are: Still present Timing of Treatment: Immediate Initial Severity: Moderate Current Severity: Mild Character: Reports: Aching Aggravating: Reports: Movement, Coughing Associated Signs and Symptoms: Reports: Bruising. Denies: LOC, Confusion, Memory loss, Lethargy, Vomiting, Bleeding, Swelling, Extremity disuse, Painful respiration, Hoarseness, Dysphagia, Hemoptysis, Significant blood loss : No Trauma Findings: Absent: Hemotympanum, Nasal deformity, Dental tenderness, Dental injury, Dental malocclusion Skin Findings: Present: Tenderness, Contusion Differential Diagnoses: Abrasion, Contusions, Fracture, Hematoma Review of Systems - Review Of Systems Constitutional: Reports: No symptoms Eyes: Reports: No symptoms Ears, Nose, Mouth, Throat: Reports: No symptoms Respiratory: Reports: Cough. Denies: Short of air Cardiac: Reports: No symptoms GI: Reports: No symptoms : Reports: No symptoms Musculoskeletal: Reports: Joint pain (right hand ) Skin: Reports: Bruising Neurological: Reports: Headache Endocrine: Reports: No symptoms All Other Systems: Reviewed and Negative Past Medical History - Past Medical History Previously Healthy: No Endocrine: Reports: Hypothyroid Cardiovascular: Reports: Hypertension, Other ((aortic mitral valve on SKF NOTES )-NORMAL ON echo 07/10/12) Respiratory: Reports: COPD Hematological: Reports: None Gastrointestinal: Reports: GERD Genitourinary: Reports: Kidney stones, CKD Neuro/Psych: Reports: TIA, CVA, Depression, Dementia Musculoskeletal: Reports: Arthritis 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 Last Menstrual Period: UNKNOWN Other Pertinent Past Medical History: falls, nonrheumatic aortic valve disorder , mitral valve disorder, - Surgical History General Surgical History: Reports: Appendectomy, Cholecystectomy, Orthopedic ( LEFT HIP-hip replacement), Other (LEFT SIDE MASECTOMY, CATARACT) - Family History Family History: Reports: Unknown - Social History Smoking Status: Former smoker Hx Substance Use: No Alcohol Screening: None - Immunizations Tetanus Shot up to Date: (UNKNOWN) Physical Exam - Physical Exam Appearance: Ill-appearing Ill-appearing: Mild Pain Distress: Mild Eyes: JAIME, EOMI, Conjunctiva clear ENT: Ears normal, Nose normal, Oropharynx normal Neck: Supple Respiratory: Airway patent, Breath sounds clear, Breath sounds equal, Respirations nonlabored Cardiovascular: RRR, Pulses normal, No rub, No murmur GI/: Soft, Nontender, No masses, Bowel sounds normal, No Organomegaly Musculoskeletal: ROM intact, Edema Neurological: Alert, Oriented Psychiatric: Anxious Interpretation - Radiology Interpretation Radiology Interpretation By: Radiologist Radiology Results: Positive (scalp Hematoma, no intracranial bleed.) Exam Interpreted: CT Scan Radiology Interpretation By: ED Physician Radiology Results: Negative (arthritis) Exam Interpreted: Other (hand x ray ) Critical Care Note - Critical Care Note Total Time (mins): 0 Course - Course Orders, Labs, Meds: Orders Category Date Time Status Benzonatate [Tessalon Perles] MEDS 01/14/17 21:00 Discontinued 100 mg PO ONCE STA CT CERVICAL SPINE W/O CONTRAST Stat RADS 01/14/17 20:[address] HEAD W/O CONTRAST Stat RADS 01/14/17 20:18 Completed HAND, RIGHT 3 VIEWS Stat RADS 01/14/17 20:44 Taken Medications Discontinued Medications Generic Name Dose Route Start Last Admin Trade Name Freq PRN Reason Stop Dose Admin Benzonatate 100 mg 01/14/17 21:00 Tessalon Perles PO 01/14/17 21:01 ONCE STA Vital Signs: Temp Pulse Resp BP Pulse Ox 01/14/17 20:07 98.1 F 83 20 188/79 H 93 L Departure - Departure Time of Disposition: 21:25 Disposition: [facility]M [facility] Discharge Problem: Scalp hematoma Qualifiers: Encounter type: initial encounter Qualified Code(s): S00.03XA - Contusion of scalp, initial encounter Contusion of right hand Qualifiers: Encounter type: initial encounter Qualified Code(s): S60.221A - Contusion of right hand, initial encounter Instructions: Scalp Contusion in Adults (ED), Hematoma (ED) Condition: Fair Pt referred to PMD for follow-up: Yes Additional Instructions: Take Tylenol as needed for pain. Follow up with PCP in 3 days. Allergies/Adverse Reactions: Allergies albuterol Adverse Reaction (Verified 01/14/17 21:05) aspirin Adverse Reaction (Verified 01/14/17 21:05) cephalexin monohydrate [From Keflex] Adverse Reaction (Verified 01/14/17 21:05) hydrochlorothiazide Adverse Reaction (Verified 01/14/17 21:05) hydrocodone [Hydrocodone] Adverse Reaction (Verified 01/14/17 21:05) linezolid [From Zyvox] Adverse Reaction (Verified 01/14/17 21:05) lisinopril [From Prinivil] Adverse Reaction (Verified 01/14/17 21:05) nisoldipine [From Sular] Adverse Reaction (Verified 01/14/17 21:05) Penicillins Adverse Reaction (Verified 01/14/17 21:05) Sulfa (Sulfonamide Antibiotics) Adverse Reaction (Verified 01/14/17 21:05) sulfamethazine [Sulfamethazine] Adverse Reaction (Verified 01/14/17 21:05) theophylline Adverse Reaction (Verified 01/14/17 21:05) zafirlukast [From Accolate] Adverse Reaction (Verified 01/14/17 21:05) Home Medications: Ambulatory Orders Clopidogrel Bisulfate [Plavix] 75 mg PO DAILY 10/04/12 Donepezil HCl 10 mg PO BEDTIME 10/04/12 Fluticasone/Salmeterol 250/50 [Advair 250-50 Diskus] 1 puff IH BID 10/04/12 Levothyroxine Sodium [Tirosint] 75 mcg PO DAILY 10/04/12 Metoprolol Tartrate [Lopressor] 12.5 mg PO BID #30 tablet 12/17/13 Acetaminophen [Tylenol] 2 tab PO Q6H PRN 07/29/14 Fluticasone Propionate [Flonase] 2 spray SONNY BID #1 spray.susp 08/05/14 Losartan Potassium [Cozaar] 25 mg PO DAILY #30 tablet 08/05/14 Amlodipine Besylate [Norvasc] 2.5 mg PO DAILY 01/01/15 Ondansetron HCl [Zofran] 4 mg PO Q6H PRN 03/05/16 Loperamide HCl [Loperamide] 2 mg PO Q4HR PRN 06/12/16 Ipratropium/Albuterol Sulfate [Combivent Respimat Inhal [place]] 1 spray IH QID Magnesium Hydroxide [Milk of Magnesia] 30 ml PO BID PRN 06/26/16 Pregabalin [Lyrica] 150 mg PO TID 06/26/16 Ferrous Sulfate 650 mg PO DAILY #60 tab-cap 08/31/16 Acetaminophen [Mapap] 500 mg PO TID 01/14/17 Azelastine HCl 1 drop EACHEYE BID 01/14/17 Cholestyramine (with Sugar) [Questran Packet] 4 gm PO DAILY 01/14/17 Cranberry 4,200 mg PO TID 01/14/17 Ipratropium/Albuterol Neb [Duoneb] 1 vial NEB RTQ8H PRN 01/14/17 Pantoprazole Sodium [Protonix] 20 mg PO DAILY 01/14/17 Vit A/Vit C/Vit E/Zinc/Copper [Preservision Areds Softgel] 1 each PO DAILY 01/14 Disposition Discussed With: Patient
[2017-01-14] MEDS ORDERED: TESSALON PERLES PO STA (21:00)
--- NOTE | 2017-01-14 21:11 | CT ---
EXAM: CT scan brain without contrast HISTORY: Fall COMPARISON: CT scan brain 06/26/2016 FINDINGS: Contiguous axial images obtained from the skull base to the convexities without contrast u tilizing 5-mm collimation. Sagittal and coronal reconstructions were imaged and reviewed. The ventri cles and CSF spaces are prominent compatible with age appropriate atrophy. There is moderate periven tricular hypodensity noted compatible with chronic microvascular disease. Atherosclerotic changes ar e seen involving the bilateral vertebral and cavernous internal carotid arteries. Mucoperiosteal thi ckening is seen in the left maxillary sinus. There is a right mastoid effusion. There is extensive left frontal scalp hematoma. The calvarium is intact. IMPRESSION: No acute intracranial findings. Left frontal scalp hematoma. The calvarium is intact.
--- NOTE | 2017-01-14 21:19 | CT ---
EXAM: Noncontrast CT of the cervical spine HISTORY: Fall COMPARISON: 06/01/2014 TECHNIQUE: Noncontrast CT of the cervical spine FINDINGS: Right apical ground-glass opacity and consolidation is seen. A right mastoid effusion is seen. Ther e is left greater than right maxillary sinus mucosal thickening. Atherosclerotic calcifications are s een. There is mild levocurvature of the cervical spine. The cervical vertebral bodies are normal in heigh t. No cervical spine fractures are identified. There is 1 mm of anterolisthesis at C3-4 and 2 mm of anterolisthesis at C4-5. This is similar to the previous exam. Small multilevel anterior osteophyt es are present. There is mild disc height loss posteriorly at C3-4 and C4-5. There is prominent mul tilevel facet arthropathy. No abnormal prevertebral soft tissue swelling is seen. IMPRESSION: No evidence of acute osseous injury to the cervical spine Multilevel degenerative disc disease and facet arthropathy. Right mastoid effusion. Left greater than right maxillary sinus mucosal thickening. Partially imaged right apical nonspecific ground-glass opacities and consolidation.
--- NOTE | 2017-01-15 07:04 | DI ---
EXAM: Three views of the right hand. History: Right hand trauma. Findings: Osteopenia. No acute fracture or dislocation. Atherosclerotic vascular calcifications. Polyarticular joint space narrowing that is most significant and moderate to severe involving the DIP joints. Impression: No acute osseous abnormality.
== END 2017-01-14 22:00 | disposition short-term general hospital (02) ==
LOC: ED 20:05
DX: S00.03XA Contusion of scalp, initial encounter (principal); S60.221A Contusion of right hand, initial encounter; S80.211A Abrasion, right knee, initial encounter; W05.0XXA Fall from non-moving wheelchair, initial encounter; S01.81XA Laceration without foreign body of other part of head, initial encounter; R51 Headache; R40.2411 Glasgow coma scale score 13-15, in the field [EMT or ambulance]
CPT/HCPCS: 99283